=== PATIENT | female | born 1990 | race Caucasian/White ===

== ENCOUNTER → 2017-12-23 | Outpatient (CLI) | payer BC ==
[2017-12-23 08:13] LABS: T4, Free (Free Thyroxine) 1.19 ng/dL (0.78-2.19)
== END | disposition home or self-care (01) ==
LOC: LABWHC1 07:16
PROVIDERS: ATTEND Obstetrics & Gynecology
DX: N97.0 Female infertility associated with anovulation (principal)
CPT/HCPCS: 36415; 84144; 84439; 84443

== ENCOUNTER → 2018-03-23 | Outpatient (CLI) | payer BC ==
--- NOTE | 2018-03-23 14:25 | USB ---
Reason for exam: clinical finding. Indicated problem(s): pain in the left breast. Physical Findings: Nurse Summary: left breast lower quadrant pain on exam, prominent bilateral nodularity, all soft, movable (nurse ts). US Breast LT Left complete breast ultrasound includes all four quadrants, the retroareolar region and axilla. Finding demonstrates a 9 x 5 x 10mm oval, solid, hypoechoic lesion at 1 o'clock and a 15 x 5 x 13mm oval, solid, hypoechoic, vascular lesion at 8 o'clock. 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 ASSESSMENT: Probably benign, BI-RAD 3 RECOMMENDATION: Ultrasound of the left breast in 6 months.
== END | disposition home or self-care (01) ==
LOC: RADUSWWP 13:37
PROVIDERS: ATTEND Obstetrics & Gynecology
DX: N64.4 Mastodynia (principal)

== ENCOUNTER → 2018-05-25 | Outpatient (CLI) | payer BC ==
[2018-05-25 07:16] LABS: Basophils % (A) 1 %; Eosinophils # (A) 0.1 k/uL (0-0.7); Eosinophils % (A) 2 %; HCT 41.5 % (34.0-46.0); HGB 14.2 gm/dL (11.4-16.0); Lymphocytes # (A) 1.8 k/uL (1.0-4.8); Lymphocytes % (A) 30 %; MCH 30.3 pg (25.0-35.0); MCHC 34.3 g/dL (31.0-37.0); MCV 88.5 fL (80.0-100.0); Mean Platelet Volume 6.3; Monocytes # (A) 0.3 k/uL (0-1.0); Monocytes % (A) 5 %; Neutrophils # (A) 3.8 k/uL (1.3-7.7); Neutrophils % (A) 61 %; Platelet Count 257 k/uL (150-450); RBC 4.69 m/uL (3.80-5.40); RDW 12.2 % (11.5-15.5); WBC 6.2 k/uL (3.8-10.6)
== END | disposition home or self-care (01) ==
LOC: LABPAT 06:51
PROVIDERS: ATTEND Obstetrics & Gynecology
DX: Z01.812 Encounter for preprocedural laboratory examination (principal)
CPT/HCPCS: 36415; 85025

== ENCOUNTER 2018-05-26 05:50 | Day surgery (SDC) | payer BC ==
--- NOTE | 2018-05-25 12:53 | P.HPOB ---
History of Present Illness H&P Date: 05/25/18 Chief Complaint: Missed . This patient is a pleasant 27yr female estimated gestational age 8wk who presents for a suction D&C secondary to a missed . She has had serial ultrasounds showing an empty gestational sac and also subchorionic bleed. She has been bleeding almost daily and is now requesting suction D&C for treatment. Review of Systems Constitutional: Denies chills, Denies fever Genitourinary: Reports abnormal vaginal bleeding, Reports Past Medical History Past Medical History: GERD/Reflux Additional Past Medical History / Comment(s): migraines, heart murmer, abdominal pain, History of Any Multi-Drug Resistant Organisms: None Reported Past Surgical History: Breast Surgery Additional Past Surgical History / Comment(s): D&C, lumpectomy-rt breast Past Anesthesia/Blood Transfusion Reactions: No Reported Reaction Past Psychological History: Anxiety Smoking Status: Never smoker Past Alcohol Use History: Occasional Past Drug Use History: None Reported - Past Family History Mother Family Medical History: No Reported History Medications and Allergies Home Medications Medication Instructions Recorded Confirmed Type Penicillin V Potassium [Pen Vee K] 500 mg PO QID #40 tab 10/06/16 Rx Allergies Allergy/AdvReac Type Severity Reaction Status Date / Time latex Allergy Rash/Hives Verified 10/05/16 23:58 pseudoephedrine HCl Allergy Anaphylaxis Verified 10/05/16 23:58 [facility] Exam - OBG Physical Exam Abdomen: bowel sounds normal, no diffuse tenderness, no bruit present, no guarding noted, no hepatomegaly, no splenomegaly, no mass Vulva: both: normal Vagina: normal moisture, no discharge Cervix: no lesion, no discharge Uterus: enlarged (8 weeks size) Results Serial ultrasounds show an empty gestational sac and subchorionic bleed. Assessment and Plan Assessment: This is a pleasant 27 yr female estimated gestational age 8 weeks with missed , requesting suction D&C for treatment. I discussed this surgery and risks: infection, bleeding, possible uterine perforation. All of the patients questions were answered and a written consent obtained. (1) Missed Status: Acute Code(s): O02.1 - MISSED SNOMED Code(s): 34067495
[~2018-05-26 05:50] MED LIST: Pre Op ABX Message 1 EACH MISC MISCELLANE ONE
[2018-05-26] MEDS ORDERED: LACTATED RINGERS 1,000 ML IV SCH (06:33)
[2018-05-26] MEDS ORDERED: LIDOCAINE 1% 20 ML VIAL (10MG/ML) FOR IV START INTRADERMA PRN (06:33)
[2018-05-26] MEDS ORDERED: DEXAMETHASONE SOD PHOSPHATE 10 MG/ML 1 ML VIAL IV ONE (06:46)
[2018-05-26] MEDS ORDERED: ONDANSETRON 4 MG/2 ML VIAL IVP ONE (06:47)
[2018-05-26] MEDS ORDERED: SCOPOLAMINE 1.5MG/72HR PATCH TRANSDERM ONE (06:48)
[2018-05-26] MEDS ORDERED: LIDOCAINE 1% INJ 10MG/ML (20 ML MDV) ONE (06:55)
[2018-05-26] MEDS ORDERED: MIDAZOLAM 2 MG/2 ML VIAL ONE (06:55)
[2018-05-26] MEDS ORDERED: fentaNYL (PF) 50 MCG/ML 2 ML AMP ONE (06:55)
[2018-05-26] MEDS ORDERED: PROPOFOL 10 MG/ML 20 ML VIAL IV ONE (06:55)
[2018-05-26] MEDS ORDERED: KETOROLAC 30 MG/ML 1 ML VIAL ONE (06:55)
--- NOTE | 2018-05-26 07:28 | P.OP ---
Date of Procedure: 05/26/18 Preoperative Diagnosis: Missed , 8 weeks Postoperative Diagnosis: Same Procedure(s) Performed: Suction D&C Anesthesia: other (LMA) Surgeon: Mitch Shearer Estimated Blood Loss (ml): 75 Urine output (ml): 25 Pathology: other (Uterine contents) Condition: stable Disposition: PACU Indications for Procedure: Please see dictated H&P for intimate details of this patient's admission. Brief summary this pleasant 27-year-old female whose estimated gestational age approximately 8 weeks who's had serial ultrasounds showing empty gestational sac. Patient's also had bleeding on and off and at this point is requesting suction D&C for treatment. Patient does understand the surgery and risks including risks of infection, bleeding, possible uterine perforation. All the patient's questions are answered written consent is obtained. Operative Findings: Uterine contents consistent with degenerated products of conception Description of Procedure: This patient is taken to the operating room where she is laid in the supine position. She subsequently undergoes general anesthesia without incident. With an adequate level of anesthesia she has a vaginal perineal prep and drape. Examination under anesthesia shows a retroverted uterus. I placed a weighted speculum posterior vagina and the bladder is drained with a latex free catheter. The Allis clamp was then placed on the anterior lip of the cervix. Cervix is gently dilated to allow a 8 curved suction curette into the uterine cavity. Suction is applied and a generous amount of tissue is removed. Multiple passes are made until no further tissue was noted. A gentle but 4 quadrant curettage is then done and note other tissue was noted. A final pass of the suction curet is done and again no further tissue was noted. Bleeding subsides at this time. Procedure is ended. The Allis clamp and weighted speculum was removed. All counts are correct 3. There are no complications. Patient's blood type is Rh+. Patient is taken to the recovery room in satisfactory condition.
[2018-05-26 07:29] VITALS: RESP 16; TEMP 97
[2018-05-26] MEDS: fentaNYL (PF) 50 MCG/ML 2 ML AMP IV PRN ×2 (07:38→07:55)
[2018-05-26 08:39] VITALS: BP 117/65; PULSE 82
== END 2018-05-26 08:45 | disposition home or self-care (01) ==
LOC: OR 05:50
PROVIDERS: ATTEND Obstetrics & Gynecology
DX: O02.1 Missed abortion (principal); Z3A.08 8 weeks gestation of pregnancy; K21.9 Gastro-esophageal reflux disease without esophagitis; R01.1 Cardiac murmur, unspecified; Z79.899 Other long term (current) drug therapy; F41.9 Anxiety disorder, unspecified; Z88.8 Allergy status to other drugs, medicaments and biological substances; Z91.040 Latex allergy status
CPT/HCPCS: 86900; 86901; 88305; 86850; 59820; J2250; J1100; J2405; J2001; J3010; J1885; J2704

== ENCOUNTER → 2018-06-21 | Outpatient (CLI) | payer BC ==
--- NOTE | 2018-06-21 08:10 | MR ---
PRE AND POSTCONTRAST ENHANCED MRI OF THE BRAIN: CLINICAL HISTORY: Tension headaches CONTRAST: Gadavist 7 mL Comparison: 01/21/2014 Multiplanar and multispin-echo imaging of the brain was performed both before and after the administr ation of contrast. The ventricles, basal cisterns and sulci overlying the cerebral convexities are within normal limits. There is no evidence for midline shift or mass effect. Acute intracranial hemorrhage or extra-axial collection is not evident. There are no abnormal areas of increased or decreased signal intensity within the brain parenchyma. Following contrast administration, there is no evidence for pathologic enhancement or enhancing mass. The paranasal sinuses and mastoid air cells are well-aerated. IMPRESSION: Unremarkable pre and postcontrast enhanced MRI of the brain.
== END | disposition home or self-care (01) ==
LOC: RADMRIMAIN 06:11
PROVIDERS: ATTEND Psychiatry & Neurology Neurology
DX: G44.209 Tension-type headache, unspecified, not intractable (principal)
CPT/HCPCS: 70553; A9581

== ENCOUNTER → 2018-06-28 | Outpatient (CLI) | payer BC ==
[2018-06-28 08:11] LABS: HCT 43.4 % (34.0-46.0); HGB 15.1 gm/dL (11.4-16.0); MCH 30.7 pg (25.0-35.0); MCHC 34.7 g/dL (31.0-37.0); MCV 88.6 fL (80.0-100.0); Mean Platelet Volume 6.6; Platelet Count 279 k/uL (150-450); RBC 4.91 m/uL (3.80-5.40); WBC 6.9 k/uL (3.8-10.6)
== END | disposition home or self-care (01) ==
LOC: LABWHC1 07:34
PROVIDERS: ATTEND Obstetrics & Gynecology
DX: O02.1 Missed abortion (principal); O46.8X9 Other antepartum hemorrhage, unspecified trimester; N93.8 Other specified abnormal uterine and vaginal bleeding; Z3A.00 Weeks of gestation of pregnancy not specified
CPT/HCPCS: 36415; 84702; 85027

== ENCOUNTER → 2018-07-05 | Outpatient (CLI) | payer BC | END | disposition home or self-care (01) | LOC: LABWHC1 07:09 | PROVIDERS: ATTEND Obstetrics & Gynecology | DX: O03.9 Complete or unspecified spontaneous abortion without complication (principal) | CPT/HCPCS: 36415; 84702 ==

== ENCOUNTER 2018-07-12 23:28 | Emergency (ER) | payer BC ==
[2018-07-13 00:06] LABS: Appearance,Urine Clear (Clear); Bilirubin,Urine Negative (Negative); Blood,Urine Negative (Negative); Color,Urine Light Yellow; Glucose,Urine (UA) Negative (Negative); Ketones,Urine Trace (Negative); Leukocyte Esterase,Urine Negative (Negative); Nitrite,Urine Negative (Negative); Protein,Urine Negative (Negative); Specific Gravity,Urine 1.011 (1.001-1.035); Urobilinogen,Urine <2.0 mg/dL (<2.0)
[2018-07-13] MEDS ORDERED: ONDANSETRON 4 MG/2 ML VIAL IVP STA (01:12)
[2018-07-13] MEDS ORDERED: MAG HYDROX/AL HYDROX/SIMETH 30 ML, HYOSCYAMINE ELIXIR 10 ML, CIMETIDINE HCL 300 MG, LID... PO STA ×4 (01:13)
--- NOTE | 2018-07-13 01:17 | ED ---
Abdominal Pain HPI - General Chief Complaint: Abdominal Pain Stated Complaint: Abd and back pain Time Seen by Provider: 07/13/18 00:58 Source: patient Mode of arrival: ambulatory Limitations: no limitations - History of Present Illness Initial Comments: This patient is a 27-year-old woman who presents to be evaluated for epigastric abdominal pain. She states is been going on for a bit over a week. Is currently severe. It has at times been crampy and she states that times throbbing. She sometimes notes that it is worse with movement, otherwise no worsening or relieving factors. The pain is somewhat intermittent. When the pain becomes severe she has nausea associated. She was seen at a clinic in [facility] where she was told she may be developing an ulcer and given prescription for Carafate and told to follow-up. MD Complaint: abdominal pain Onset/Timin -: week(s) Location: epigastric Radiation: none Migration to: no migration Severity: severe Quality: cramping, other (Throbbing) Consistency: intermittent Improves With: movement Worsens With: nothing Associated Symptoms: nausea - Related Data Previous Rx's Medication Instructions Recorded Famotidine [Pepcid] 20 mg PO BID #14 tablet 07/13/18 Allergies Allergy/AdvReac Type Severity Reaction Status Date / Time latex Allergy Rash/Hives Verified 07/12/18 23:40 pseudoephedrine HCl Allergy Anaphylaxis Verified 07/12/18 23:40 [From [facility]] Review of Systems ROS Statement: Those systems with pertinent positive or pertinent negative responses have been documented in the HPI. ROS Other: All systems not noted in ROS Statement are negative. Constitutional: Denies: fever, chills Respiratory: Denies: cough, dyspnea Cardiovascular: Denies: chest pain, palpitations, edema Gastrointestinal: Reports: abdominal pain, nausea. Denies: vomiting, diarrhea, constipation Genitourinary: Denies: dysuria, frequency, hematuria, abnormal menses Musculoskeletal: Denies: back pain Skin: Denies: rash Neurological: Denies: headache, weakness, numbness Past Medical History Past Medical History: GERD/Reflux Additional Past Medical History / Comment(s): migraines, heart murmer, abdominal pain, seeing neurologist for headaches (accipital nerves are inflammed ), History of Any Multi-Drug Resistant Organisms: None Reported Past Surgical History: Breast Surgery Additional Past Surgical History / Comment(s): D&C, lumpectomy-rt breast, Past Anesthesia/Blood Transfusion Reactions: No Reported Reaction, Motion Sickness, Postoperative Nausea & Vomiting (PONV) Past Psychological History: Anxiety Smoking Status: Never smoker Past Alcohol Use History: Occasional Past Drug Use History: None Reported - Past Family History Mother Family Medical History: No Reported History General Exam Limitations: no limitations General appearance: alert, in no apparent distress Head exam: Present: atraumatic, normocephalic Eye exam: Present: normal appearance. Absent: scleral icterus, conjunctival injection ENT exam: Present: normal oropharynx Respiratory exam: Present: normal lung sounds bilaterally. Absent: respiratory distress, wheezes, rales, rhonchi, stridor Cardiovascular Exam: Present: regular rate, normal rhythm, normal heart sounds. Absent: systolic murmur, diastolic murmur, rubs, gallop GI/Abdominal exam: Present: soft, tenderness (There is mild epigastric tenderness without rebound or guarding), normal bowel sounds. Absent: distended , guarding, rebound, rigid, mass, pulsatile mass, hernia Extremities exam: Present: normal inspection, normal capillary refill. Absent: pedal edema, calf tenderness Back exam: Present: normal inspection. Absent: CVA tenderness (R), CVA tenderness (L) Neurological exam: Present: alert Skin exam: Present: warm, dry, intact, normal color. Absent: rash Course Vital Signs 07/12/18 23:35 Temperature 98.0 F Pulse Rate 82 Respiratory 17 Rate Blood Pressure 133/88 O2 Sat by Pulse 98 Oximetry Medical Decision Making - Lab Data Result diagrams: 07/13/18 01:46 07/13/18 01:46 Lab Results 07/12/18 07/12/18 07/13/18 Range/Units 23:40 23:40 01:46 WBC (3.8-10.6) k/uL RBC (3.80-5.40) m/uL Hgb (11.4-16.0) gm/dL Hct (34.0-46.0) % MCV (80.0-100.0) fL MCH (25.0-35.0) pg MCHC (31.0-37.0) g/dL RDW (11.5-15.5) % Plt Count (150-450) k/uL Neutrophils % % Lymphocytes % % Monocytes % % Eosinophils % % Basophils % % Neutrophils # (1.3-7.7) k/uL Lymphocytes # (1.0-4.8) k/uL Monocytes # (0-1.0) k/uL Eosinophils # (0-0.7) k/uL Basophils # (0-0.2) k/uL Sodium 139 (137-145) mmol/L Potassium 3.5 (3.5-5.1) mmol/L Chloride 105 (98-107) mmol/L Carbon Dioxide 26 (22-30) mmol/L Anion Gap 8 mmol/L BUN 13 (7-17) mg/dL Creatinine 0.56 (0.52-1.04) mg/dL Est GFR (CKD-EPI)AfAm >90 (>60 ml/min/1.73 sqM) Est GFR (CKD-EPI)NonAf >90 (>60 ml/min/1.73 sqM) Glucose 84 (74-99) mg/dL Calcium 9.4 (8.4-10.2) mg/dL Total Bilirubin 0.5 (0.2-1.3) mg/dL AST 22 (14-36) U/L ALT 36 (9-52) U/L Alkaline Phosphatase 54 (38-126) U/L Total Protein 7.5 (6.3-8.2) g/dL Albumin 4.5 (3.5-5.0) g/dL Amylase 72 (30-110) U/L Lipase 193 (23-300) U/L Urine Color Light Yellow Urine Appearance Clear (Clear) Urine pH 6.0 (5.0-8.0) Ur Specific Hulett 1.011 (1.001-1.035) Urine Protein Negative (Negative) Urine Glucose (UA) Negative (Negative) Urine Ketones Trace H (Negative) Urine Blood Negative (Negative) Urine Nitrite Negative (Negative) Urine Bilirubin Negative (Negative) Urine Urobilinogen <2.0 (<2.0) mg/dL Ur Leukocyte Esterase Negative (Negative) Urine HCG, Qual Not Detected (Not Detectd) 07/13/18 Range/Units 01:46 WBC 8.6 (3.8-10.6) k/uL RBC 4.84 (3.80-5.40) m/uL Hgb 14.5 (11.4-16.0) gm/dL Hct 42.2 (34.0-46.0) % MCV 87.1 (80.0-100.0) fL MCH 30.0 (25.0-35.0) pg MCHC 34.4 (31.0-37.0) g/dL RDW 11.9 (11.5-15.5) % Plt Count 255 (150-450) k/uL Neutrophils % 53 % Lymphocytes % 37 % Monocytes % 6 % Eosinophils % 1 % Basophils % 1 % Neutrophils # 4.5 (1.3-7.7) k/uL Lymphocytes # 3.2 (1.0-4.8) k/uL Monocytes # 0.5 (0-1.0) k/uL Eosinophils # 0.1 (0-0.7) k/uL Basophils # 0.1 (0-0.2) k/uL Sodium (137-145) mmol/L Potassium (3.5-5.1) mmol/L Chloride (98-107) mmol/L Carbon Dioxide (22-30) mmol/L Anion Gap mmol/L BUN (7-17) mg/dL Creatinine (0.52-1.04) mg/dL Est GFR (CKD-EPI)AfAm (>60 ml/min/1.73 sqM) Est GFR (CKD-EPI)NonAf (>60 ml/min/1.73 sqM) Glucose (74-99) mg/dL Calcium (8.4-10.2) mg/dL Total Bilirubin (0.2-1.3) mg/dL AST (14-36) U/L ALT (9-52) U/L Alkaline Phosphatase (38-126) U/L Total Protein (6.3-8.2) g/dL Albumin (3.5-5.0) g/dL Amylase (30-110) U/L Lipase (23-300) U/L Urine Color Urine Appearance (Clear) Urine pH (5.0-8.0) Ur Specific Hulett (1.001-1.035) Urine Protein (Negative) Urine Glucose (UA) (Negative) Urine Ketones (Negative) Urine Blood (Negative) Urine Nitrite (Negative) Urine Bilirubin (Negative) Urine Urobilinogen (<2.0) mg/dL Ur Leukocyte Esterase (Negative) Urine HCG, Qual (Not Detectd) Disposition Clinical Impression: Abdominal pain Disposition: HOME SELF-CARE Condition: Fair Instructions: Abdominal Pain (ED) Prescriptions: Famotidine [Pepcid] 20 mg PO BID #14 tablet Is patient prescribed a controlled substance at d/c from ED?: No Referrals: Doyle Summers DO [Primary Care Provider] - 1-2 days Andreina Hawthorne MD [STAFF PHYSICIAN] - 1-2 days
--- NOTE | 2018-07-13 01:38 | US ---
EXAMINATION TYPE: US abdomen limited DATE OF EXAM: 07/13/2018 COMPARISON: NONE CLINICAL HISTORY: Pain, RUQ. Pain EXAM MEASUREMENTS: Liver Length: 16.0 cm Gallbladder Wall: 0.2 cm CBD: 0.4 cm Right Kidney: 10.0 x 4.3 x 3.9 cm Pancreas: wnl Liver: wnl Gallbladder: wnl Evidence for sonographic Daigle's sign: No CBD: wnl Right Kidney: wnl Exam appears wnl. IMPRESSION: Normal exam. No gallstones or dilated ducts.
[2018-07-13 02:10] LABS: Basophils # (A) 0.1 k/uL (0-0.2); Basophils % (A) 1 %; Eosinophils # (A) 0.1 k/uL (0-0.7); Eosinophils % (A) 1 %; HCT 42.2 % (34.0-46.0); HGB 14.5 gm/dL (11.4-16.0); Lymphocytes # (A) 3.2 k/uL (1.0-4.8); Lymphocytes % (A) 37 %; MCHC 34.4 g/dL (31.0-37.0); MCV 87.1 fL (80.0-100.0); Mean Platelet Volume 6.6; Monocytes # (A) 0.5 k/uL (0-1.0); Monocytes % (A) 6 %; Neutrophils # (A) 4.5 k/uL (1.3-7.7); Neutrophils % (A) 53 %; Platelet Count 255 k/uL (150-450); RBC 4.84 m/uL (3.80-5.40); RDW 11.9 % (11.5-15.5); WBC 8.6 k/uL (3.8-10.6)
[2018-07-13 02:27] LABS: ALT 36 U/L (9-52); AST 22 U/L (14-36); Albumin 4.5 g/dL (3.5-5.0); Alkaline Phosphatase 54 U/L (38-126); Amylase 72 U/L (30-110); Anion Gap 8 mmol/L; Blood Urea Nitrogen 13 mg/dL (7-17); Calcium 9.4 mg/dL (8.4-10.2); Carbon Dioxide 26 mmol/L (22-30); Chloride 105 mmol/L (98-107); Glucose 84 mg/dL (74-99); Lipase 193 U/L (23-300); Potassium 3.5 mmol/L (3.5-5.1); Sodium 139 mmol/L (137-145); Total Bilirubin 0.5 mg/dL (0.2-1.3); Total Protein 7.5 g/dL (6.3-8.2)
[2018-07-13] MEDS ORDERED: FAMOTIDINE 20 MG/2 ML VIAL IV STA (02:46)
--- NOTE | 2018-07-13 03:11 | XR ---
EXAMINATION TYPE: XR chest 2V DATE OF EXAM: 07/13/2018 COMPARISON: NONE HISTORY: Abdominal pain TECHNIQUE: Frontal and lateral views of the chest are obtained. FINDINGS: Heart and mediastinum are normal. Lungs are clear. Diaphragm is normal. Bony thorax appear s normal. IMPRESSION: Normal chest.
[2018-07-13] MEDS ORDERED: HYDROcodone/APAP 5-325MG 1 EACH TAB PO STA (03:42)
[2018-07-13 04:02] VITALS: BP 121/66; PULSE 73; RESP 18; TEMP 97.8
== END 2018-07-13 04:33 | disposition home or self-care (01) ==
LOC: EC 23:28
DX: R10.13 Epigastric pain (principal); R11.0 Nausea; Z91.040 Latex allergy status; Z88.8 Allergy status to other drugs, medicaments and biological substances
CPT/HCPCS: 36415; 80053; 82150; 83690; 85025; 81003; 81025; 71046; 76705; 99284; 96374; 96375; J2405

== ENCOUNTER → 2018-08-16 | Outpatient (CLI) | payer BC ==
--- NOTE | 2018-08-16 09:25 | NM ---
Nuclear medicine hepatobiliary scan. HISTORY: Pain. DOSAGE: The patient received 8 ounces of ensure plus and 5.1 mCi of Technetium 99m Choletec. FINDINGS: There is heterogeneous hepatic extraction. The gallbladder is seen by 20 minutes. There i s biliary to bowel clearance by 30 minutes. Ejection fraction is 89%. IMPRESSION: 1. No evidence of cholecystitis. 2. Ejection fraction of 89% can occasionally be seen with hyperdynamic gallbladder. Correlate clinica lly. 3. Heterogeneous hepatic extraction which could be technical, correlate with liver function studies.
== END | disposition home or self-care (01) ==
LOC: RADNMMAIN 07:01
PROVIDERS: ATTEND Family Medicine
DX: R10.11 Right upper quadrant pain (principal)
CPT/HCPCS: 78226; A9537

== ENCOUNTER → 2018-08-28 | Outpatient (CLI) | payer BC ==
--- NOTE | 2018-08-28 13:58 | CT ---
EXAMINATION TYPE: CT abdomen pelvis wo con DATE OF EXAM: 08/28/2018 COMPARISON: 07/24/2015 HISTORY: Pain x 4-5 days, worse on left side. CT DLP: 329.4 mGycm Automated exposure control for dose reduction was used. TECHNIQUE: Helical acquisition of images was performed from the lung bases through the pelvis. FINDINGS: LUNG BASES: No significant abnormality is appreciated. LIVER/GB: Unremarkable unenhanced morphology. No cholelithiasis. PANCREAS: No significant abnormality is seen. SPLEEN: No splenomegaly. Spleen measures 10.6 cm in craniocaudal dimension. ADRENALS: No significant abnormality is seen. KIDNEYS: No hydronephrosis or nephrolithiasis. FREE AIR: No free air is visualized ADENOPATHY: None visualized REPRODUCTIVE ORGANS: Follicular and/or cystic changes are seen of the ovaries that could be further a ssessed with pelvic ultrasound. OSSEOUS STRUCTURES: No significant abnormality is seen. BOWEL: No dilated large or small bowel. No pericolonic fat stranding is seen. No diverticula are not ed. No pericolonic abscess or fluid collection. Appendix is contrast-filled, retrocecal and within no rmal limits.. OTHER: Incidental note is made of a 1.3 cm Bartholin's gland cyst without surrounding inflammatory fa t stranding. IMPRESSION: 1. NO EVIDENCE OF DIVERTICULITIS OR ACUTE COLITIS. NO PNEUMOPERITONEUM OR EVIDENCE OF INTRA-ABDOMINAL ABSCESS. 2. FOLLICULAR AND/OR CYSTIC CHANGES OF THE OVARIES. IF THERE IS PERSISTENT ABDOMINAL PAIN OR FURTHER CLINICAL CONCERN PELVIC ULTRASOUND COULD BE PERFORMED. 3. INCIDENTALLY NOTED LEFT BARTHOLIN'S GLAND CYST.
== END | disposition home or self-care (01) ==
LOC: RADCTMAIN 11:46
PROVIDERS: ATTEND Family Medicine
DX: N75.0 Cyst of Bartholin's gland (principal)
CPT/HCPCS: 74176

== ENCOUNTER 2018-10-13 08:02 | Day surgery (SDC) | payer BC ==
[2018-10-12 09:32] VITALS: BMI 22.8
[2018-10-13] MEDS: LACTATED RINGERS 1,000 ML IV SCH ×2 (08:19→08:49)
[2018-10-13 08:21] VITALS: TEMP 98.5
[2018-10-13] MEDS ORDERED: ONDANSETRON 4 MG/2 ML VIAL IVP ONE (08:24)
[2018-10-13] MEDS ORDERED: PROPOFOL 10 MG/ML 20 ML VIAL IV ONE (08:51)
--- NOTE | 2018-10-13 09:04 | P.PCN ---
Date of Procedure: 10/13/18 Procedure(s) Performed: BRIEF HISTORY: Patient is a 27-year-old, pleasant, white female scheduled for an upper endoscopy as a part of evaluation of epigastric pain for the last 3 months duration. Pain is mostly in the epigastric area and associated with some heartburn. She tried Carafate, Zantac and Prilosec with no help. She is hence scheduled for an upper endoscopy to evaluate further. No prior history of peptic ulcer disease. PROCEDURE PERFORMED: Esophagogastroduodenoscopy with biopsy. PREOPERATIVE DIAGNOSIS: Heartburn and persistent epigastric pain of 3 months duration. IV sedation per anesthesia. PROCEDURE: After informed consent was obtained, the patient was brought into the endoscopy unit. IV sedation was administered by Anesthesia under continuous monitoring. Initially the Olympus GIF-140 video endoscope was inserted into the mouth. Esophagus intubated without any difficulty. It was gradually advanced into the stomach and duodenum and carefully examined. The bulb and the second part of the duodenum appeared normal. Biopsies were done from the duodenum to rule out celiac disease. The scope at this time was withdrawn to the stomach, adequately insufflated with air, and upon careful examination, mucosa of the antrum, had mild gastritis and scattered erosions and biopsies for H. pylori were done. The body, cardia and the fundus appeared normal. The scope was then withdrawn into the esophagus. The GE junction was located at 39 cm from the incisors. There were 2 superficial erosions at the GE junction consistent with LA grade B reflux esophagitis. The rest of the esophagus appeared normal and the patient tolerated the procedure well. IMPRESSION: 1. Antral erosive gastritis. 2. Two superficial erosions at the GE junction consistent with LA grade B reflux esophagitis. RECOMMENDATIONS: The findings of this examination were discussed with the patient as well as her family. She was advised to follow with the biopsy results. In the meantime she was advised to avoid NSAIDs and she will be given a trial of Pepcid 20 mg twice daily. If she still has persistent symptoms she was advised to follow up in office in 3-4 weeks.
[2018-10-13 09:24] VITALS: BP 103/71; PULSE 64; RESP 16
== END 2018-10-13 09:46 | disposition home or self-care (01) ==
LOC: ORWHC2ENDO 08:02
PROVIDERS: ATTEND Internal Medicine Gastroenterology
DX: K29.50 Unspecified chronic gastritis without bleeding (principal); K22.10 Ulcer of esophagus without bleeding; J45.909 Unspecified asthma, uncomplicated; K21.9 Gastro-esophageal reflux disease without esophagitis; Z79.1 Long term (current) use of non-steroidal anti-inflammatories (NSAID); Z79.82 Long term (current) use of aspirin; Z79.899 Other long term (current) drug therapy; Z88.8 Allergy status to other drugs, medicaments and biological substances; Z91.040 Latex allergy status
CPT/HCPCS: 81025; 88305; 43239; J2405; J2704

== ENCOUNTER → 2018-11-01 | Outpatient (CLI) | payer BC ==
--- NOTE | 2018-11-02 11:55 | USB ---
Reason for exam: follow-up at short interval from prior study. Physical Findings: Nurse Summary: prominent bilateral nodularity (nurse ts). US Breast LT Left complete breast ultrasound includes all four quadrants, the retroareolar region and axilla. Finding demonstrates a 1.0 x 0.5 x 1.0cm oval, solid, hypoechoic stable lesion at 1 o'clock and a 1.5 x 1.7 x 0.5cm oval, solid, hypoechoic, stable lesion at 8 o'clock. Probable fibroadenomas. These results were verbally communicated with the patient and result sheet given to the patient on 11/01/18. ASSESSMENT: Benign, BI-RAD 2 RECOMMENDATION: Clinical management of the left breast. Manage patient on a clinical basis.
== END ==
LOC: RADUSWWP 07:08
PROVIDERS: ATTEND Obstetrics & Gynecology
DX: R92.8 Other abnormal and inconclusive findings on diagnostic imaging of breast (principal)

== ENCOUNTER 2018-12-03 19:25 | Emergency (ER) | payer BC, OTHER ==
--- NOTE | 2018-12-03 20:16 | ED ---
General Adult HPI - General Source: patient Mode of arrival: ambulatory Limitations: no limitations <Young Lopez - Last Filed: 12/03/18 20:15> <Paz Gibbs P - Last Filed: 12/03/18 22:49> - General Chief complaint: Chest Pain Stated complaint: SOB,Chest pain Time Seen by Provider: 12/03/18 20:15 - Related Data Home Medications Medication Instructions Recorded Confirmed Cetirizine HCl [Zyrtec] 10 mg PO DAILY PRN 09/21/18 12/03/18 Aspirin 81 mg PO DAILY PRN 10/12/18 12/03/18 Ranitidine HCl [Zantac] 150 mg PO BID PRN 12/03/18 12/03/18 Allergies Allergy/AdvReac Type Severity Reaction Status Date / Time latex Allergy Rash/Hives Verified 12/03/18 20:18 pseudoephedrine HCl Allergy Anaphylaxis Verified 12/03/18 20:18 [From [facility]] Review of Systems ROS Other: All systems not noted in ROS Statement are negative. <Young Lopez - Last Filed: 12/03/18 20:15> ROS Other: All systems not noted in ROS Statement are negative. <Paz Gibbs P - Last Filed: 12/03/18 22:49> ROS Statement: Those systems with pertinent positive or pertinent negative responses have been documented in the HPI. Past Medical History Past Medical History: Asthma, GERD/Reflux Additional Past Medical History / Comment(s): migraines, heart murmur, abdominal pain, seeing neurologist for headaches (occipital nerves are inflammed ), sport induced asthma as teenager, recent palpitations & chest pain-upcoming appt. w/card. History of Any Multi-Drug Resistant Organisms: None Reported Past Surgical History: Breast Surgery Additional Past Surgical History / Comment(s): D&C x2, lumpectomy-rt breast, Past Anesthesia/Blood Transfusion Reactions: Motion Sickness, Postoperative Nausea & Vomiting (PONV) Past Psychological History: Anxiety Smoking Status: Never smoker Past Alcohol Use History: None Reported Past Drug Use History: None Reported - Past Family History Mother Family Medical History: No Reported History <Young Lopez - Last Filed: 12/03/18 20:15> General Exam Limitations: no limitations <Young Lopez - Last Filed: 12/03/18 20:15> Vital Signs 12/03/18 12/03/18 12/03/18 19:35 19:53 20:00 Temperature 98.3 F Pulse Rate 85 70 Respiratory 18 17 17 Rate Blood Pressure 145/105 O2 Sat by Pulse 100 Oximetry 12/03/18 12/03/18 12/03/18 20:10 20:20 20:33 Temperature Pulse Rate 64 66 Respiratory 10 L 17 23 Rate Blood Pressure O2 Sat by Pulse 100 100 Oximetry 12/03/18 12/03/18 12/03/18 20:40 20:50 21:00 Temperature Pulse Rate 72 68 69 Respiratory 17 15 17 Rate Blood Pressure 128/82 128/82 128/82 O2 Sat by Pulse 100 98 100 Oximetry 12/03/18 12/03/18 12/03/18 21:10 21:20 21:30 Temperature Pulse Rate 70 70 Respiratory 10 L 11 L Rate Blood Pressure 116/78 116/78 116/78 O2 Sat by Pulse 100 100 Oximetry 12/03/18 21:40 Temperature Pulse Rate 75 Respiratory 15 Rate Blood Pressure 116/78 O2 Sat by Pulse 100 Oximetry Medical Decision Making <Young Lopez - Last Filed: 12/03/18 20:15> - Lab Data Result diagrams: 12/03/18 19:59 12/03/18 19:59 <Paz Gibbs - Last Filed: 12/03/18 22:49> - Medical Decision Making Dictation was produced using [employer] dictation software. please excuse any grammatical, word or spelling errors. Chief Complaint: 27-year-old female with past medical history of asthma and gastritis presents with 3 days of neck pain shoulder pain chest pain and dyspnea. History of Present Illness: Is a 27-year-old female she's been having symptoms of nausea. No vomiting. Shows complains of neck pain chest pain shoulder pain and back pain. She reports that her symptoms have been ongoing for 3-4 days. Denies any constitutional symptoms. No runny nose or sore throat. Patient denies any overt sick exposure. Patient states her symptoms are worse with movement. She states that she has had symptoms like this before however not this severe. Patient is sexually active does not know she is possibly . The ROS documented in this emergency department record has been reviewed and confirmed by me. Those systems with pertinent positive or negative responses have been documented in the HPI. All other systems are other negative and/or noncontributory. PHYSICAL EXAM: General Impression: Alert and oriented x3, not in acute distress HEENT: Normocephalic atraumatic, extra-ocular movements intact, pupils equal and reactive to light bilaterally, mucous membranes moist. Cardiovascular: Heart regular rate and rhythm, S1&S2 audible, no murmurs, rubs or gallops Chest: Lungs clear to auscultation bilaterally, no rhonchi, no wheeze, no rales Abdomen: Bowel sounds present, abdomen soft, non-tender, non-distended, no organomegaly Musculoskeletal: Pulses present and equal in all extremities, no peripheral edema Motor: Power 5/5 bilaterally, no focal deficits noted Neurological: CN II-XII grossly intact, no focal motor or sensory deficits noted Skin: Intact with no visualized rashes Psych: Normal affect and mood ED course: 27-year-old female presents with multiple complaints. Vital signs upon arrival are within acceptable limits. EKG interpretation: Ventricular rate 75, normal sinus rhythm, OH interval 136, QRS 94, QTc 439. No OH prolongation, no QTC prolongation, no ST or T-wave changes noted. . Overall, this EKG is unremarkable (Young Lopez) Patient care was signed out to me at shift change. This is young female with 3 days of neck shoulder and chest pain with mild dyspnea. No tachycardia or hypoxia. Initial workup was ordered by the daytime physician, at the time of sign out EKG and chest x-ray had been evaluated however labs were pending. Labs resulted with no abnormalities. Patient resting comfortably. Patient discharged home in stable condition. (Paz Gibbs) - Lab Data Lab Results 12/03/18 12/03/18 12/03/18 Range/Units 19:59 19:59 19:59 WBC 6.7 (3.8-10.6) k/uL RBC 4.76 (3.80-5.40) m/uL Hgb 14.9 (11.4-16.0) gm/dL Hct 42.7 (34.0-46.0) % MCV 89.7 (80.0-100.0) fL MCH 31.4 (25.0-35.0) pg MCHC 35.0 (31.0-37.0) g/dL RDW 11.9 (11.5-15.5) % Plt Count 282 (150-450) k/uL Neutrophils % 54 % Lymphocytes % 35 % Monocytes % 6 % Eosinophils % 1 % Basophils % 1 % Neutrophils # 3.6 (1.3-7.7) k/uL Lymphocytes # 2.3 (1.0-4.8) k/uL Monocytes # 0.4 (0-1.0) k/uL Eosinophils # 0.1 (0-0.7) k/uL Basophils # 0.1 (0-0.2) k/uL PT (9.0-12.0) sec INR (<1.2) APTT (22.0-30.0) sec Sodium 141 (137-145) mmol/L Potassium 3.9 (3.5-5.1) mmol/L Chloride 107 (98-107) mmol/L Carbon Dioxide 24 (22-30) mmol/L Anion Gap 10 mmol/L BUN 8 (7-17) mg/dL Creatinine 0.70 (0.52-1.04) mg/dL Est GFR (CKD-EPI)AfAm >90 (>60 ml/min/1.73 sqM) Est GFR (CKD-EPI)NonAf >90 (>60 ml/min/1.73 sqM) Glucose 99 (74-99) mg/dL Calcium 10.0 (8.4-10.2) mg/dL Magnesium 2.1 (1.6-2.3) mg/dL Total Bilirubin 0.4 (0.2-1.3) mg/dL AST 22 (14-36) U/L ALT 28 (9-52) U/L Alkaline Phosphatase 46 (38-126) U/L Total Creatine Kinase 63 (30-135) U/L CK-MB (CK-2) 0.5 (0.0-2.4) ng/mL CK-MB (CK-2) Rel Index 0.8 Troponin I <0.012 (0.000-0.034) ng/mL NT-Pro-B Natriuret Pep pg/mL Total Protein 7.6 (6.3-8.2) g/dL Albumin 4.7 (3.5-5.0) g/dL Urine Color Urine Appearance (Clear) Urine pH (5.0-8.0) Ur Specific [place] (1.001-1.035) Urine Protein (Negative) Urine Glucose (UA) (Negative) Urine Ketones (Negative) Urine Blood (Negative) Urine Nitrite (Negative) Urine Bilirubin (Negative) Urine Urobilinogen (<2.0) mg/dL Ur Leukocyte Esterase (Negative) Urine HCG, Qual (Not Detectd) Influenza Type A RNA (Not Detectd) Influenza Type B (PCR) (Not Detectd) 12/03/18 12/03/18 12/03/18 Range/Units 19:59 19:59 20:30 WBC (3.8-10.6) k/uL RBC (3.80-5.40) m/uL Hgb (11.4-16.0) gm/dL Hct (34.0-46.0) % MCV (80.0-100.0) fL MCH (25.0-35.0) pg MCHC (31.0-37.0) g/dL RDW (11.5-15.5) % Plt Count (150-450) k/uL Neutrophils % % Lymphocytes % % Monocytes % % Eosinophils % % Basophils % % Neutrophils # (1.3-7.7) k/uL Lymphocytes # (1.0-4.8) k/uL Monocytes # (0-1.0) k/uL Eosinophils # (0-0.7) k/uL Basophils # (0-0.2) k/uL PT 10.8 (9.0-12.0) sec INR 1.0 (<1.2) APTT 28.0 (22.0-30.0) sec Sodium (137-145) mmol/L Potassium (3.5-5.1) mmol/L Chloride (98-107) mmol/L Carbon Dioxide (22-30) mmol/L Anion Gap mmol/L BUN (7-17) mg/dL Creatinine (0.52-1.04) mg/dL Est GFR (CKD-EPI)AfAm (>60 ml/min/1.73 sqM) Est GFR (CKD-EPI)NonAf (>60 ml/min/1.73 sqM) Glucose (74-99) mg/dL Calcium (8.4-10.2) mg/dL Magnesium (1.6-2.3) mg/dL Total Bilirubin (0.2-1.3) mg/dL AST (14-36) U/L ALT (9-52) U/L Alkaline Phosphatase (38-126) U/L Total Creatine Kinase (30-135) U/L CK-MB (CK-2) (0.0-2.4) ng/mL CK-MB (CK-2) Rel Index Troponin I (0.000-0.034) ng/mL NT-Pro-B Natriuret Pep 40 pg/mL Total Protein (6.3-8.2) g/dL Albumin (3.5-5.0) g/dL Urine Color Urine Appearance (Clear) Urine pH (5.0-8.0) Ur Specific [place] (1.001-1.035) Urine Protein (Negative) Urine Glucose (UA) (Negative) Urine Ketones (Negative) Urine Blood (Negative) Urine Nitrite (Negative) Urine Bilirubin (Negative) Urine Urobilinogen (<2.0) mg/dL Ur Leukocyte Esterase (Negative) Urine HCG, Qual (Not Detectd) Influenza Type A RNA Not Detected (Not Detectd) Influenza Type B (PCR) Not Detected (Not Detectd) 12/03/18 12/03/18 Range/Units 20:30 20:30 WBC (3.8-10.6) k/uL RBC (3.80-5.40) m/uL Hgb (11.4-16.0) gm/dL Hct (34.0-46.0) % MCV (80.0-100.0) fL MCH (25.0-35.0) pg MCHC (31.0-37.0) g/dL RDW (11.5-15.5) % Plt Count (150-450) k/uL Neutrophils % % Lymphocytes % % Monocytes % % Eosinophils % % Basophils % % Neutrophils # (1.3-7.7) k/uL Lymphocytes # (1.0-4.8) k/uL Monocytes # (0-1.0) k/uL Eosinophils # (0-0.7) k/uL Basophils # (0-0.2) k/uL PT (9.0-12.0) sec INR (<1.2) APTT (22.0-30.0) sec Sodium (137-145) mmol/L Potassium (3.5-5.1) mmol/L Chloride (98-107) mmol/L Carbon Dioxide (22-30) mmol/L Anion Gap mmol/L BUN (7-17) mg/dL Creatinine (0.52-1.04) mg/dL Est GFR (CKD-EPI)AfAm (>60 ml/min/1.73 sqM) Est GFR (CKD-EPI)NonAf (>60 ml/min/1.73 sqM) Glucose (74-99) mg/dL Calcium (8.4-10.2) mg/dL Magnesium (1.6-2.3) mg/dL Total Bilirubin (0.2-1.3) mg/dL AST (14-36) U/L ALT (9-52) U/L Alkaline Phosphatase (38-126) U/L Total Creatine Kinase (30-135) U/L CK-MB (CK-2) (0.0-2.4) ng/mL CK-MB (CK-2) Rel Index Troponin I (0.000-0.034) ng/mL NT-Pro-B Natriuret Pep pg/mL Total Protein (6.3-8.2) g/dL Albumin (3.5-5.0) g/dL Urine Color Colorless Urine Appearance Clear (Clear) Urine pH 7.5 (5.0-8.0) Ur Specific [place] 1.002 (1.001-1.035) Urine Protein Negative (Negative) Urine Glucose (UA) Negative (Negative) Urine Ketones Negative (Negative) Urine Blood Negative (Negative) Urine Nitrite Negative (Negative) Urine Bilirubin Negative (Negative) Urine Urobilinogen <2.0 (<2.0) mg/dL Ur Leukocyte Esterase Negative (Negative) Urine HCG, Qual Not Detected (Not Detectd) Influenza Type A RNA (Not Detectd) Influenza Type B (PCR) (Not Detectd) Disposition <Young Lopez - Last Filed: 12/03/18 20:15> Is patient prescribed a controlled substance at d/c from ED?: No <Paz Gibbs P - Last Filed: 12/03/18 22:49> Clinical Impression: Atypical chest pain Disposition: HOME SELF-CARE Condition: Stable Instructions (If sedation given, give patient instructions): Chest Pain (ED) Referrals: Sae Morrissey MD [Primary Care Provider] - 1-2 days
[2018-12-03 20:20] LABS: Basophils # (A) 0.1 k/uL (0-0.2); Basophils % (A) 1 %; Eosinophils # (A) 0.1 k/uL (0-0.7); Eosinophils % (A) 1 %; HCT 42.7 % (34.0-46.0); HGB 14.9 gm/dL (11.4-16.0); Lymphocytes # (A) 2.3 k/uL (1.0-4.8); Lymphocytes % (A) 35 %; MCH 31.4 pg (25.0-35.0); MCV 89.7 fL (80.0-100.0); Mean Platelet Volume 6.6; Monocytes # (A) 0.4 k/uL (0-1.0); Monocytes % (A) 6 %; Neutrophils # (A) 3.6 k/uL (1.3-7.7); Neutrophils % (A) 54 %; Platelet Count 282 k/uL (150-450); RBC 4.76 m/uL (3.80-5.40); RDW 11.9 % (11.5-15.5); WBC 6.7 k/uL (3.8-10.6)
[2018-12-03 20:30] LABS: ALT 28 U/L (9-52); AST 22 U/L (14-36); Albumin 4.7 g/dL (3.5-5.0); Alkaline Phosphatase 46 U/L (38-126); Anion Gap 10 mmol/L; Blood Urea Nitrogen 8 mg/dL (7-17); Carbon Dioxide 24 mmol/L (22-30); Chloride 107 mmol/L (98-107); Glucose 99 mg/dL (74-99); Magnesium 2.1 mg/dL (1.6-2.3); Potassium 3.9 mmol/L (3.5-5.1); Sodium 141 mmol/L (137-145); Total Bilirubin 0.4 mg/dL (0.2-1.3); Total Protein 7.6 g/dL (6.3-8.2)
[2018-12-03 20:34] LABS: Creatine Kinase 63 U/L (30-135)
[2018-12-03 20:35] LABS: Prothrombin Time 10.8 sec (9.0-12.0)
[2018-12-03 20:47] LABS: Creatine Kinase MB 0.5 ng/mL (0.0-2.4); Troponin I <0.012 ng/mL (0.000-0.034)
[2018-12-03 21:01] LABS: Appearance,Urine Clear (Clear); Bilirubin,Urine Negative (Negative); Blood,Urine Negative (Negative); Color,Urine Colorless; Glucose,Urine (UA) Negative (Negative); Ketones,Urine Negative (Negative); Leukocyte Esterase,Urine Negative (Negative); Nitrite,Urine Negative (Negative); PH, Urine 7.5 (5.0-8.0); Protein,Urine Negative (Negative); Specific Gravity,Urine 1.002 (1.001-1.035); Urobilinogen,Urine <2.0 mg/dL (<2.0)
--- NOTE | 2018-12-03 21:13 | XR ---
EXAMINATION TYPE: XR chest 2V DATE OF EXAM: 12/03/2018 COMPARISON: Prior chest x-ray 07/13/2018 HISTORY: Chest pain TECHNIQUE: Frontal and lateral views of the chest are obtained. FINDINGS: There is no focal air space opacity, pleural effusion, or pneumothorax seen. The cardiac silhouette size is within normal limits. The osseous structures are intact. There are cardiac leads . Pectus deformity is noted. IMPRESSION: No acute cardiopulmonary process.
[2018-12-03 21:48] VITALS: PULSE 75
[2018-12-03 23:38] VITALS: BP 118/75; RESP 16; TEMP 97.9
== END 2018-12-03 23:38 | disposition home or self-care (01) ==
LOC: EC 19:25
DX: R07.89 Other chest pain (principal); M54.2 Cervicalgia; M25.519 Pain in unspecified shoulder; M54.9 Dorsalgia, unspecified; R11.0 Nausea; Z88.8 Allergy status to other drugs, medicaments and biological substances; Z91.040 Latex allergy status; Z86.69 Personal history of other diseases of the nervous system and sense organs
CPT/HCPCS: 36415; 71046; 80053; 81003; 81025; 82550; 82553; 83735; 83880; 84484; 85025; 85610; 85730; 87502; 93005; 99285

== ENCOUNTER 2019-02-21 19:26 | Emergency (ER) | payer OTHER ==
[2019-02-21 19:31] VITALS: BP 133/91; RESP 20; TEMP 98.5
[2019-02-21] MEDS ORDERED: METOCLOPRAMIDE 5 MG/ML 2 ML VIAL IVP STA (19:32)
[2019-02-21] MEDS ORDERED: SODIUM CHLORIDE 0.9% 2,000 ML IV STA (19:32)
--- NOTE | 2019-02-21 19:56 | ED ---
Nausea/Vomiting/Diarrhea HPI - General Chief complaint: Nausea/Vomiting/Diarrhea Stated complaint: Dehyrdation, 12 wks preg Time Seen by Provider: 02/21/19 19:32 Source: patient, RN notes reviewed Mode of arrival: ambulatory Limitations: no limitations - History of Present Illness Initial comments: This is a 28-year-old female presents emergency Department with chief complaint of nausea vomiting in . Patient is A1 currently 12 weeks pr e[address]ant seen Dr. Shearer. Patient states she's had persistent nausea vomiting for last 4 weeks. Patient states the point where she is cramping all over. She has no abdominal complaints denies any vaginal bleeding or vaginal discharge. Patient has appointment tomorrow with Dr. Shearer. Patient is currently taking Unisom, B6, Zofran. She states it's not helping at this point. Denies any no fever no URI symptoms no sick contacts. - Related Data Home Medications Medication Instructions Recorded Confirmed Doxylamine Succinate [Unisom] 25 mg PO HS 02/21/19 02/21/19 Ondansetron [Zofran] 4 mg PO Q6H PRN 02/21/19 02/21/19 Pyridoxine HCl (Vitamin B6) 100 mg PO DAILY 02/21/19 02/21/19 [Vitamin B-6] Allergies Allergy/AdvReac Type Severity Reaction Status Date / Time latex Allergy Rash/Hives Verified 02/21/19 19:45 pseudoephedrine HCl Allergy Anaphylaxis Verified 02/21/19 19:45 [From [facility]] Review of Systems ROS Statement: Those systems with pertinent positive or pertinent negative responses have been documented in the HPI. ROS Other: All systems not noted in ROS Statement are negative. Past Medical History Past Medical History: Asthma, GERD/Reflux Additional Past Medical History / Comment(s): migraines, heart murmur, abdominal pain, seeing neurologist for headaches (occipital nerves are inflammed), sport induced asthma as teenager, recent palpitations & chest pain-upcoming appt. w/card. History of Any Multi-Drug Resistant Organisms: None Reported Past Surgical History: Breast Surgery Additional Past Surgical History / Comment(s): D&C x2, lumpectomy-rt breast, Past Anesthesia/Blood Transfusion Reactions: Motion Sickness, Postoperative Nausea & Vomiting (PONV) Past Psychological History: Anxiety Smoking Status: Never smoker Past Alcohol Use History: None Reported Past Drug Use History: None Reported - Past Family History Mother Family Medical History: No Reported History General Exam Limitations: no limitations General appearance: alert, in no apparent distress Head exam: Present: atraumatic, normocephalic, normal inspection Eye exam: Present: normal appearance, PERRL, EOMI. Absent: scleral icterus, conjunctival injection, periorbital swelling ENT exam: Present: normal exam, normal oropharynx, mucous membranes moist, TM's normal bilaterally Neck exam: Present: normal inspection, full ROM. Absent: tenderness, meningismu s, lymphadenopathy Respiratory exam: Present: normal lung sounds bilaterally. Absent: respiratory distress, wheezes, rales, rhonchi, stridor Cardiovascular Exam: Present: normal rhythm, tachycardia, normal heart sounds. Absent: systolic murmur, diastolic murmur, rubs, gallop, clicks GI/Abdominal exam: Present: soft, normal bowel sounds. Absent: distended, tenderness, guarding, rebound, rigid Neurological exam: Present: alert Skin exam: Present: warm, dry, intact, normal color. Absent: rash Course Vital Signs 02/21/19 02/21/19 19:27 20:59 Temperature 98.5 F Pulse Rate 110 H 99 Respiratory 20 Rate Blood Pressure 133/91 O2 Sat by Pulse 99 97 Oximetry Medical Decision Making - Medical Decision Making 28-year-old female presented for nausea vomiting . Patient has trace ketones and urinalysis, hypokalemia. Patient was given 20 mEq orally. Patient states she is improved after IV fluids and antiemetics. Patient will follow-up with her [employer] tomorrow. Return parameters were discussed. - Lab Data Result diagrams: 02/21/19 19:56 02/21/19 19:56 Lab Results 02/21/19 02/21/19 02/21/19 Range/Units 19:56 19:56 19:56 WBC 8.7 (3.8-10.6) k/uL RBC 4.30 (3.80-5.40) m/uL Hgb 13.5 (11.4-16.0) gm/dL Hct 37.6 (34.0-46.0) % MCV 87.5 (80.0-100.0) fL MCH 31.5 (25.0-35.0) pg MCHC 36.0 (31.0-37.0) g/dL RDW 12.0 (11.5-15.5) % Plt Count 264 (150-450) k/uL Neutrophils % 70 % Lymphocytes % 22 % Monocytes % 5 % Eosinophils % 1 % Basophils % 0 % Neutrophils # 6.1 (1.3-7.7) k/uL Lymphocytes # 1.9 (1.0-4.8) k/uL Monocytes # 0.4 (0-1.0) k/uL Eosinophils # 0.1 (0-0.7) k/uL Basophils # 0.0 (0-0.2) k/uL Sodium 137 (137-145) mmol/L Potassium 3.3 L (3.5-5.1) mmol/L Chloride 106 (98-107) mmol/L Carbon Dioxide 22 (22-30) mmol/L Anion Gap 9 mmol/L BUN 11 (7-17) mg/dL Creatinine 0.43 L (0.52-1.04) mg/dL Est GFR (CKD-EPI)AfAm >90 (>60 ml/min/1.73 sqM) Est GFR (CKD-EPI)NonAf >90 (>60 ml/min/1.73 sqM) Glucose 82 (74-99) mg/dL Calcium 9.3 (8.4-10.2) mg/dL Total Bilirubin 0.4 (0.2-1.3) mg/dL AST 17 (14-36) U/L ALT 21 (9-52) U/L Alkaline Phosphatase 49 (38-126) U/L Total Protein 6.9 (6.3-8.2) g/dL Albumin 4.1 (3.5-5.0) g/dL Lipase 127 (23-300) U/L Urine Color Yellow Urine Appearance Clear (Clear) Urine pH 5.5 (5.0-8.0) Ur Specific [place] 1.027 (1.001-1.035) Urine Protein Trace H (Negative) Urine Glucose (UA) Negative (Negative) Urine Ketones Trace H (Negative) Urine Blood Negative (Negative) Urine Nitrite Negative (Negative) Urine Bilirubin Negative (Negative) Urine Urobilinogen 2.0 (<2.0) mg/dL Ur Leukocyte Esterase Trace H (Negative) Urine RBC 2 (0-5) /hpf Urine WBC 3 (0-5) /hpf Ur Squamous Epith Cells 1 (0-4) /hpf Urine Bacteria Occasional H (None) /hpf Urine Mucus Rare H (None) /hpf Disposition Clinical Impression: Hyperemesis gravidarum, Hypokalemia Disposition: HOME SELF-CARE Condition: Stable Instructions (If sedation given, give patient instructions): Hyperemesis Gravidarum (ED) Additional Instructions: Please return to the Emergency Department if symptoms worsen or any other concerns. Is patient prescribed a controlled substance at d/c from ED?: No Referrals: Sae Morrissey MD [Primary Care Provider] - 1-2 days Mitch Shearer MD [STAFF PHYSICIAN] - 1-2 days Time of Disposition: 21:19
[2019-02-21 20:06] LABS: Basophils % (A) 0 %; Eosinophils # (A) 0.1 k/uL (0-0.7); Eosinophils % (A) 1 %; HCT 37.6 % (34.0-46.0); HGB 13.5 gm/dL (11.4-16.0); Lymphocytes # (A) 1.9 k/uL (1.0-4.8); Lymphocytes % (A) 22 %; MCH 31.5 pg (25.0-35.0); MCV 87.5 fL (80.0-100.0); Mean Platelet Volume 6.4; Monocytes # (A) 0.4 k/uL (0-1.0); Monocytes % (A) 5 %; Neutrophils # (A) 6.1 k/uL (1.3-7.7); Neutrophils % (A) 70 %; Platelet Count 264 k/uL (150-450); WBC 8.7 k/uL (3.8-10.6)
[2019-02-21 20:14] LABS: Appearance,Urine Clear (Clear); Bacteria,Urine Occasional /hpf; Bilirubin,Urine Negative (Negative); Blood,Urine Negative (Negative); Color,Urine Yellow; Glucose,Urine (UA) Negative (Negative); Ketones,Urine Trace (Negative); Leukocyte Esterase,Urine Trace (Negative); Mucus,Urine Rare /hpf; Nitrite,Urine Negative (Negative); PH, Urine 5.5 (5.0-8.0); Protein,Urine Trace (Negative); RBC,Urine 2 /hpf (0-5); Specific Gravity,Urine 1.027 (1.001-1.035); Squamous Epithelial Cell,Urine 1 /hpf (0-4); WBC,Urine 3 /hpf (0-5)
[2019-02-21 20:19] LABS: ALT 21 U/L (9-52); AST 17 U/L (14-36); Albumin 4.1 g/dL (3.5-5.0); Alkaline Phosphatase 49 U/L (38-126); Anion Gap 9 mmol/L; Blood Urea Nitrogen 11 mg/dL (7-17); Calcium 9.3 mg/dL (8.4-10.2); Carbon Dioxide 22 mmol/L (22-30); Chloride 106 mmol/L (98-107); Glucose 82 mg/dL (74-99); Lipase 127 U/L (23-300); Potassium 3.3 mmol/L (3.5-5.1); Sodium 137 mmol/L (137-145); Total Bilirubin 0.4 mg/dL (0.2-1.3); Total Protein 6.9 g/dL (6.3-8.2)
[2019-02-21 21:00] VITALS: PULSE 99
[2019-02-21] MEDS ORDERED: POTASSIUM CHLORIDE ER 20 MEQ TAB.ER PO STA (21:18)
== END 2019-02-21 21:28 | disposition home or self-care (01) ==
LOC: EC 19:26
DX: O21.1 Hyperemesis gravidarum with metabolic disturbance (principal); O99.281 Endocrine, nutritional and metabolic diseases complicating pregnancy, first trimester; E87.6 Hypokalemia; Z3A.12 12 weeks gestation of pregnancy; Z79.899 Other long term (current) drug therapy; Z88.8 Allergy status to other drugs, medicaments and biological substances; Z91.040 Latex allergy status
CPT/HCPCS: 36415; 80053; 83690; 85025; 81001; 99284; 96374; 96361; J2765

== ENCOUNTER 2019-05-04 19:00 | Outpatient (CLI) | payer OTHER ==
[2019-05-04 19:40] LABS: Appearance,Urine Clear (Clear); Bilirubin,Urine Negative (Negative); Blood,Urine Negative (Negative); Color,Urine Light Yellow; Glucose,Urine (UA) Negative (Negative); Ketones,Urine Negative (Negative); Leukocyte Esterase,Urine Negative (Negative); Nitrite,Urine Negative (Negative); PH, Urine 6.5 (5.0-8.0); Protein,Urine Negative (Negative); Specific Gravity,Urine 1.008 (1.001-1.035); Urobilinogen,Urine <2.0 mg/dL (<2.0)
[2019-05-04 20:53] VITALS: BP 119/67; PULSE 81; RESP 16; TEMP 98.5
--- NOTE | 2019-05-05 14:04 | P.MSEPDOC ---
Presenting Problems - Arrival Data Date of Arrival on Unit: 05/04/19 Time of Arrival on Unit: 19:00 Mode of Transport: Ambulatory - Complaint OB-Reason for Admission/Chief Complaint: Pain Comment: cramping, pressure. rates pain a 1 Medical History - Information : 3 Para: 1 Term: 1 : 0 Abortions: Spontaneous or Elective: 1 Number of Living Children: 1 - Gestational Age Gestational Age by VARGAS (wks/days): 22 Weeks and 5 Days Review of Systems - Review of Systems Constitutional: No problems Breast: No problems ENT: No problems Cardiovascular: No problems Respiratory: No problems Gastrointestinal: No problems Genitourinary: No problems Musculoskeletal: No problems Neurological: No problems Skin: No problems Vital Signs - Temperature Temperature: 98.5 F Temperature Source: Oral - Pulse Right Sitting Brachial Pulse Rate: 81 Pulse Assessment Method: Automatic Cuff - Respirations Respiratory Rate: 16 Oxygen Delivery Method: Room Air - Blood Pressure Right Arm Sitting Blood Pressure: 119/67 Blood Pressure Mean: 84 Blood Pressure Source: Automatic Cuff Medical Screen Scoring (Pre) - Cervical Exam Dilation: 0 cm = 0 Membranes: Intact - Uterine Contractions Frequency: N/A Duration: N/A Intensity: N/A - Maternal Vital Signs Maternal Temperature: N/A Maternal Blood Pressure: N/A Signs of Preeclampsia: N/A Maternal Respirations: N/A - Maternal Trauma Maternal Trauma: N/A - Total Score - Baby A Total Score - Baby A: 0 - Total Score - Baby B Total Score - Baby B: 0 - Total Score - Baby C Total Score - Baby C: 0 - Level of Risk - Baby A Level of Risk - Baby A: Low (0-5) - Level of Risk - Baby B Level of Risk - Baby B: Low (0-5) - Level of Risk - Baby C Level of Risk - Baby C: Low (0-5) Physician Notification (Pre) - Physician Notified Physician Notified Date: 05/04/19 Physician Notified Time: 20:00 Physician/Practitioner Notifed:: Octaviano Finn Order Received: Yes Disposition - Disposition OB Disposition: Discharge to home, Written follow up instructions reviewed Discharge Date: 05/04/19 Discharge Time: 20:08 I agree with the RN Medical Screening Exam: Yes Risk & Benefit of care provided described in d/c instruction: Yes Diagnosis: RELATED CONDITIONS, UNSPECIFIED, SECOND TRIMESTER
== END 2019-05-04 20:08 | disposition home or self-care (01) ==
LOC: FBPOP 19:00
PROVIDERS: ATTEND Obstetrics & Gynecology
DX: O26.92 Pregnancy related conditions, unspecified, second trimester (principal); Z3A.22 22 weeks gestation of pregnancy
CPT/HCPCS: 81003; 99213

== ENCOUNTER 2019-08-19 12:10 | Outpatient (CLI) | payer OTHER ==
[2019-08-19 12:43] VITALS: BP 127/75; PULSE 101; RESP 16; TEMP 96.8
[2019-08-19 12:51] LABS: Amorphous Sediment,Urine Rare /hpf; Appearance,Urine Cloudy (Clear); Bacteria,Urine Many /hpf; Bilirubin,Urine Negative (Negative); Blood,Urine Negative (Negative); Color,Urine Light Yellow; Glucose,Urine (UA) Negative (Negative); Ketones,Urine Negative (Negative); Leukocyte Esterase,Urine Small (Negative); Mucus,Urine Rare /hpf; Nitrite,Urine Negative (Negative); Protein,Urine Negative (Negative); RBC,Urine 3 /hpf (0-5); Specific Gravity,Urine 1.009 (1.001-1.035); Squamous Epithelial Cell,Urine 2 /hpf (0-4); Urobilinogen,Urine <2.0 mg/dL (<2.0); WBC,Urine 17 /hpf (0-5)
--- NOTE | 2019-09-05 08:19 | P.MSEPDOC ---
Presenting Problems - Arrival Data Date of Arrival on Unit: 08/19/19 Time of Arrival on Unit: 12:10 Mode of Transport: Ambulatory - Complaint OB-Reason for Admission/Chief Complaint: Possible Onset of Labor Medical History - Information : 3 Para: 1 Number of Living Children: 1 - Gestational Age Gestational Age by VARGAS (wks/days): 38 Weeks and 0 Days Review of Systems - Review of Systems Constitutional: No problems Breast: No problems ENT: No problems Cardiovascular: No problems Respiratory: No problems Gastrointestinal: No problems Genitourinary: No problems Musculoskeletal: No problems Neurological: No problems Skin: No problems Vital Signs - Temperature Temperature: 96.8 F Temperature Source: Temporal Artery Scan - Pulse Right Sitting Brachial Pulse Rate: 101 Pulse Assessment Method: Automatic Cuff - Respirations Respiratory Rate: 16 Oxygen Delivery Method: Room Air O2 Sat by Pulse Oximetry: 99 - Blood Pressure Right Arm Sitting Blood Pressure: 127/75 Blood Pressure Mean: 92 Blood Pressure Source: Automatic Cuff Medical Screen Scoring (Pre) - Cervical Exam Dilation: 1-3 cm = 1 Effacement: Exam Deferred Membranes: Intact - Uterine Contractions Frequency: > 5 minutes apart = 1 Duration: > 40 seconds = 2 Intensity: N/A - Maternal Vital Signs Maternal Temperature: N/A Maternal Blood Pressure: N/A Signs of Preeclampsia: N/A Maternal Respirations: N/A - Maternal Trauma Maternal Trauma: N/A - Assessment - Baby A Baseline FHR: 130 Heart Rate - NICHD Category: Category II (Indeterminate) = 3 NST: Reactive Position: N/A Station: N/A - Total Score - Baby A Total Score - Baby A: 7 - Total Score - Baby B Total Score - Baby B: 4 - Total Score - Baby C Total Score - Baby C: 4 - Level of Risk - Baby A Level of Risk - Baby A: Medium (6-9) - Level of Risk - Baby B Level of Risk - Baby B: Low (0-5) - Level of Risk - Baby C Level of Risk - Baby C: Low (0-5) Physician Notification (Post) - Physician Notified Physician Notified Date: 08/19/19 Physician Notified Time: 12:56 Physician/Practitioner Notified:: dr Mobley Spoke With: dr Mobley New Order Received: (discharge pt home with instruction to call office tomorrow for f/u for UTI) Disposition - Disposition OB Disposition: Discharge to home Discharge Date: 08/19/19 Discharge Time: 13:01 I agree with the RN Medical Screening Exam: Yes Risk & Benefit of care provided described in d/c instruction: Yes Diagnosis: FALSE LABOR AT OR AFTER 37 COMPLETED WEEKS OF GESTATION
== END 2019-08-19 13:03 | disposition home or self-care (01) ==
LOC: FBPOP 12:10
PROVIDERS: ATTEND Obstetrics & Gynecology
DX: O47.1 False labor at or after 37 completed weeks of gestation (principal); Z3A.38 38 weeks gestation of pregnancy
CPT/HCPCS: 59025; 81001; 99213

== ENCOUNTER 2019-08-27 05:46 | Inpatient (IN) | payer OTHER ==
--- NOTE | 2019-08-26 16:39 | P.HPOB ---
History of Present Illness H&P Date: 08/26/19 Chief Complaint: Presenting for primary C/S This patient is a pleasant 28 yr female EDC 09/02/2019 estimated gestational age 39wk1d who presents to L&D for primary section due to previous traumatic vaginal delivery (large 4th degree laceration). was complicated by a isolated choriod plexus cyst but this was evaluated by MFM and resolved. Patient's 1st baby was 8#7oz and delivery complicated by a large 4th degree laceration, which healed well, however this baby is estimated to be large as well and she does not want to risk rectal injury. Review of Systems Genitourinary: Reports Menstruation: Reports amenorrhea Past Medical History Past Medical History: Asthma, GERD/Reflux Additional Past Medical History / Comment(s): migraines, heart murmur, abdominal pain, seeing neurologist for headaches (occipital nerves are inflammed), sport induced asthma as teenager, recent palpitations & chest pain-upcoming appt. w/card. History of Any Multi-Drug Resistant Organisms: None Reported Past Surgical History: Breast Surgery Additional Past Surgical History / Comment(s): D&C x2, lumpectomy-rt breast, Past Anesthesia/Blood Transfusion Reactions: Motion Sickness, Postoperative Nausea & Vomiting (PONV) Past Psychological History: Anxiety Smoking Status: Never smoker Past Alcohol Use History: None Reported Past Drug Use History: None Reported - Past Family History Mother Family Medical History: No Reported History Medications and Allergies Home Medications Medication Instructions Recorded Confirmed Type Pyridoxine HCl (Vitamin B6) 100 mg PO DAILY 02/21/19 08/19/19 History [Vitamin B-6] Allergies Allergy/AdvReac Type Severity Reaction Status Date / Time latex Allergy Rash/Hives Verified 08/19/19 12:31 pseudoephedrine HCl Allergy Anaphylaxis Verified 08/19/19 12:31 [From [facility]] Exam - OBG Physical Exam Abdomen: bowel sounds normal, no diffuse tenderness, no bruit present, no guarding noted, no hepatomegaly, no splenomegaly, no mass Vulva: both: normal Vagina: normal moisture, no discharge Cervix: no lesion, no discharge Uterus: enlarged (Fundal height is 40 cm) Results Blood type is O positive, Rubella Immune, RPR-HepB negative, Normal anatom y/growth ultrasounds. GBS was negative Assessment and Plan Assessment: This is a pleasant 28 yr old female 39wks estimated gestation with history of significant 4th degree laceration requesting primary section. I have discussed this surgery and risks: infection, bleeding, possible injury to bowel/bladder/vessels/other organs. Risk of DVT and PE. All of the patients questions were answered and a written consent obtained. (1) 39 weeks gestation of Status: Acute Code(s): Z3A.39 - 39 WEEKS GESTATION OF SNOMED Code(s): 34939618 (2) Fourth degree perineal laceration affecting delivery Status: Acute Code(s): O70.3 - FOURTH DEGREE PERINEAL LACERATION DURING DELIVERY SNOMED Code(s): 601592285
[2019-08-27] MEDS ORDERED: LACTATED RINGERS 1,000 ML IV SCH (05:55)
[2019-08-27] MEDS ORDERED: LACTATED RINGERS 1,000 ML IV ONE (05:55)
[2019-08-27] MEDS ORDERED: CITRIC ACID-SODIUM CITRATE 15 ML CUP PO ONE (05:55)
[2019-08-27 06:00] VITALS: RESP 16; BMI 27.3
[2019-08-27 06:20] LABS: Basophils % (A) 0 %; Eosinophils # (A) 0.1 k/uL (0-0.7); Eosinophils % (A) 1 %; HCT 35.1 % (34.0-46.0); HGB 11.7 gm/dL (11.4-16.0); Lymphocytes % (A) 20 %; MCH 29.3 pg (25.0-35.0); MCHC 33.5 g/dL (31.0-37.0); MCV 87.5 fL (80.0-100.0); Mean Platelet Volume 6.8; Monocytes # (A) 0.6 k/uL (0-1.0); Monocytes % (A) 6 %; Neutrophils # (A) 6.7 k/uL (1.3-7.7); Neutrophils % (A) 69 %; Platelet Count 296 k/uL (150-450); RBC 4.01 m/uL (3.80-5.40); RDW 12.5 % (11.5-15.5); WBC 9.6 k/uL (3.8-10.6)
[2019-08-27] MEDS ORDERED: MORPHINE SULFATE (PF) 0.3 MG/0.3 ML SYR ONE (07:47)
[2019-08-27] MEDS ORDERED: OXYTOCIN 10 UNIT/ML 1 ML VIAL ONE (07:47)
[2019-08-27] MEDS ORDERED: KETOROLAC 30 MG/ML 1 ML VIAL ONE (07:47)
[2019-08-27] MEDS ORDERED: ONDANSETRON 4 MG/2 ML VIAL ONE (07:47)
[2019-08-27] MEDS ORDERED: HYDROmorphone (PF) 1 MG/ML ONE (07:47)
[2019-08-27] MEDS ORDERED: NALBUPHINE 10 MG/ML (1 ML AMP) ONE (07:47)
--- NOTE | 2019-08-27 08:41 | P.OP ---
Date of Procedure: 08/27/19 Preoperative Diagnosis: #1: 39 and one sevenths week intrauterine . #2: Previous fourth degree laceration requesting section. Postoperative Diagnosis: Same Procedure(s) Performed: Primary low transverse section Anesthesia: spinal Surgeon: Mitch Shearer Radar Operator #1: Lissette Valles Estimated Blood Loss (ml): 800 Pathology: none sent Condition: stable Disposition: floor Indications for Procedure: Please see dictated H&P for intimate details of this patient's admission. In brief summary this is a pleasant 28-year-old 3 para 1 female 39 and one sevenths weeks gestation who is admitted to labor and delivery for primary section due to history of previous significant for degree laceration. Patient understands this surgery and risks including risks of infection, bleeding, possible injury to bowel, bladder, vessels, and/or other organs. Patient also understands risk of DVT and pulmonary embolism. All the patient's questions are answered and a written consent is obtained. Operative Findings: This was a vigorous viable male Apgars 9 and 9 delivery time is 0809 hrs. has spontaneous respirations and good cry and grossly appears normal Description of Procedure: This patient has a Hernandez catheter placed to straight drain. She is subsequently taken to the operating room and appropriate timeout is done. Patient is then sat up and spinal anesthetic is administered without incident. With an adequate level of anesthesia she has abdominal prep and drape. Scalpels then taken and a Pfannenstiel skin incision is then made. A second scalpel is taken down the fascia the fascia scored with a knife. Fascial incision extended bilaterally using the Youssef scissors. Fascia is dissected off the rectus muscles sharply. Rectus muscles are then the peritoneum identified and entered sharply. Bladder blade is then placed. Bladder peritoneum was then made sharply. A scalpel is taken low transverse uterine incision is made. Using a hemostat I enter the uterine cavity bluntly. There is loss of clear fluid. This incision is then extended bluntly. 's head is then guided through the incision with fundal pressure delivered. Mouth and nares are bulb suctioned. There is no evidence of nuchal cord. With more fundal pressure deliver the anterior posterior shoulder and rest this infant's body. This is a vigorous viable male infant Apgars are 9 and 9 delivery time is 0809 hrs. After delivery of the infant the umbilical cord is doubly clamped and cut it appears to be trivascular. The placenta is then manually extracted intact. Uterus is then externalized uterine incision demarcated with Larry clamps. Uterine cavity appears to be free of all debris. Uterine incision then closed using 0 Vicryl running locked fashion 2 layers. Excellent hemostasis is noted. The bladder peritoneum was then reapproximated using a 3-0 Vicryl. Excess fluid is removed from the abdomen and pelvis. Uterus tubes and ovaries appear normal for term gestation. Uterus is placed back into the abdomen. The parietal peritoneum was then identified. Again inspection of the incision shows to be hemostatic. The parietal incision is then closed using 0 Vicryl running fashion. Rectus muscles reapproximated in 0 Vicryl ruptured fashion. The fascia is then closed using 0 PDS. Fascial incision is intact and hemostatic. Subcutaneous tissues and closed using a 3-0 Vicryl. Skin is and closed using nohemi. Sterile dressing is then applied. All counts are correct 3. There are no complications. Infant and mother taken the birthing suite in satisfactory condition.
[2019-08-27] MEDS ORDERED: LANOLIN CREAM 5 GM TUBE TOPICAL PRN (08:51)
[2019-08-27] MEDS ORDERED: diphenhydrAMINE 25 MG CAP PO PRN (08:51)
[2019-08-27] MEDS ORDERED: ONDANSETRON 4 MG/2 ML VIAL IVP PRN (08:51)
[2019-08-27] MEDS ORDERED: diphenhydrAMINE 50 MG/ML 1 ML VIAL IVP PRN (08:51)
[2019-08-27] MEDS ORDERED: NALOXONE 0.4 MG/ML 1 ML VIAL IV PRN (08:51)
[2019-08-27] MEDS ORDERED: METOCLOPRAMIDE 5 MG/ML 2 ML VIAL IVP PRN (08:51)
[2019-08-27] MEDS ORDERED: SIMETHICONE 80 MG CHEWABLE PO PRN (08:51)
[2019-08-27] MEDS ORDERED: ZOLPIDEM 5 MG TAB PO PRN (08:51)
[2019-08-27] MEDS ORDERED: OXYTOCIN 20 UNITS/1000 ML NS 1,000 ML IV SCH (08:51)
[2019-08-27] MEDS: KETOROLAC 30 MG/ML 1 ML VIAL IVP PRN ×2 (16:44→22:04)
[2019-08-27] MEDS: SENNOSIDES-DOCUSATE SODIUM 1 EACH TAB PO SCH ×2 (17:07→21:13)
[2019-08-27] MEDS: LACTATED RINGERS 1,000 ML IV SCH ×2 (17:08→18:05)
[2019-08-28] MEDS: LACTATED RINGERS 1,000 ML IV SCH (01:15)
[2019-08-28] MEDS: KETOROLAC 30 MG/ML 1 ML VIAL IVP PRN (05:36)
[2019-08-28] MEDS ORDERED: DIPH,PERTUS(ACELL)TETVAC-LF 0.5 ML VIAL IM ONE (06:53)
--- NOTE | 2019-08-28 06:57 | P.PNOBGPC ---
Subjective - Subjective Patient reports: Reports appetite normal, Reports voiding normally, Reports pain well controlled, Reports ambulating normally : doing well Objective - Vital Signs Latest vital signs: Vital Signs Temp Pulse Resp BP Pulse Ox 08/28/19 04:00 98.4 F 80 16 104/71 98 08/28/19 00:00 98 F 77 16 103/54 98 08/27/19 20:00 98.2 F 74 16 113/62 08/27/19 16:00 98.3 F 65 16 121/75 08/27/19 12:00 96.5 F L 78 16 114/65 98 08/27/19 10:34 97.7 F 72 16 118/66 08/27/19 10:04 78 16 122/78 98 08/27/19 09:34 76 16 119/53 98 08/27/19 09:19 84 16 109/70 97 08/27/19 09:04 79 16 109/70 98 08/27/19 08:49 81 16 108/63 98 08/27/19 08:34 96.8 F L 83 16 103/59 98 Intake and Output 08/27/19 08/27/19 08/28/19 14:59 22:59 06:59 Output Total 900 500 Balance -900 -500 Output: Urine 900 500 Other: # Voids 1 1 - Exam Lungs: bilateral: normal Chest: Normal S1, Normal S2 Extremities: Present: normal Abdomen: Present: normal appearance, soft. Absent: distention, tenderness Incision: Present: normal, dry, intact Uterus: Present: normal, firm Assessment and Plan Assessment: Postoperative day #1. Patient is resting without complaints. Vital signs are stable she is afebrile. Uterus is firm nontender and her incision is intact and dry. Plan today is to encourage ambulation, allow the patient to shower, check CBC, and continue routine postoperative care. (1) 39 weeks gestation of Current Visit: No Status: Acute Code(s): Z3A.39 - 39 WEEKS GESTATION OF SNOMED Code(s): 76306821 (2) Fourth degree perineal laceration affecting delivery Current Visit: No Status: Acute Code(s): O70.3 - FOURTH DEGREE PERINEAL LACERATION DURING DELIVERY SNOMED Code(s): 229712879
--- NOTE | 2019-08-28 07:42 | P.PN ---
Progress Note - Text Progress Note Date: 08/28/19 28-year-old female status post section with Duramorph spinal. Patient doing well no complications. Minimal pruritus. VAS is between a 2-410 in severity. Ambulating no issues. Tolerating her diet well.
[2019-08-28 08:16] LABS: Basophils % (A) 0 %; Eosinophils % (A) 1 %; HCT 30.1 % (34.0-46.0); HGB 10.2 gm/dL (11.4-16.0); Lymphocytes # (A) 1.3 k/uL (1.0-4.8); Lymphocytes % (A) 13 %; MCH 30.3 pg (25.0-35.0); MCHC 34.1 g/dL (31.0-37.0); Mean Platelet Volume 6.4; Monocytes # (A) 0.6 k/uL (0-1.0); Monocytes % (A) 6 %; Neutrophils # (A) 7.7 k/uL (1.3-7.7); Neutrophils % (A) 78 %; Platelet Count 268 k/uL (150-450); RBC 3.38 m/uL (3.80-5.40); RDW 12.3 % (11.5-15.5); WBC 9.9 k/uL (3.8-10.6)
[2019-08-28] MEDS: ACETAMINOPHEN TAB 325 MG TAB PO PRN ×2 (08:23→14:58)
[2019-08-28] MEDS: SENNOSIDES-DOCUSATE SODIUM 1 EACH TAB PO SCH ×2 (08:24→19:43)
[2019-08-28] MEDS: IBUPROFEN 600 MG TAB PO PRN ×2 (11:48→17:48)
[2019-08-28] MEDS: HYDROcodone/APAP 5-325MG 1 EACH TAB PO PRN (19:42)
[2019-08-29] MEDS: IBUPROFEN 600 MG TAB PO PRN ×2 (00:02→06:12)
[2019-08-29] MEDS: HYDROcodone/APAP 5-325MG 1 EACH TAB PO PRN (03:00)
[2019-08-29] MEDS ORDERED: HYDROcodone/APAP 7.5-325MG 1 EACH TAB PO PRN (04:45)
--- NOTE | 2019-08-29 06:43 | P.PNOBGPC ---
Subjective - Subjective Patient reports: Reports appetite normal, Reports voiding normally, Reports pain well controlled, Reports ambulating normally : doing well Objective - Vital Signs Latest vital signs: Vital Signs Temp Pulse Resp BP Pulse Ox 08/28/19 23:52 98.2 F 90 16 118/71 08/28/19 16:00 97.6 F 85 16 112/69 97 08/28/19 08:00 98.2 F 76 16 103/61 Intake and Output 08/28/19 08/28/19 08/29/19 14:59 22:59 06:59 Other: # Voids 1 2 1 - Exam Lungs: bilateral: normal Chest: Normal S1, Normal S2 Extremities: Present: normal Abdomen: Present: normal appearance, soft. Absent: distention, tenderness Incision: Present: normal, dry, intact Uterus: Present: normal, firm - Labs Labs: Abnormal Lab Results - Last 24 Hours (Table) 08/28/19 Range/Units 07:39 RBC 3.38 L (3.80-5.40) m/uL Hgb 10.2 L (11.4-16.0) gm/dL Hct 30.1 L (34.0-46.0) % Assessment and Plan Assessment: Postoperative day #2. Patient is resting and wishes to go home. Patient has some gas pains last evening however she is tolerating regular diet and passing flatus. Vital signs are stable and she is afebrile. CBC yesterday was normal. My impression this is a normal /post operative course. Plan will be to continue routine postoperative care and discharge home today if she desires. (1) 39 weeks gestation of Current Visit: No Status: Acute Code(s): Z3A.39 - 39 WEEKS GESTATION OF PREG FORREST SNOMED Code(s): 10820983 (2) Fourth degree perineal laceration affecting delivery Current Visit: No Status: Acute Code(s): O70.3 - FOURTH DEGREE PERINEAL LACERATION DURING DELIVERY SNOMED Code(s): 500673490
--- NOTE | 2019-08-29 06:50 | P.DS ---
Providers Date of admission: 08/27/19 05:46 Expected date of discharge: 08/29/19 Attending physician: Mitch Shearer Primary care physician: Sae Linaresio - Discharge Diagnosis(es) (1) 39 weeks gestation of Current Visit: No Status: Acute (2) Fourth degree perineal laceration affecting delivery Current Visit: No Status: Acute Hospital Course: Please see dictated H&P for intimate details of this patient's admission. Brief summary is a pleasant 28-year-old 3 para 1 female 39 and one sevenths weeks gestation who is admitted to labor and delivery for elective primary section due to history of traumatic delivery (fourth degree). Patient underwent a primary low transverse section for viable male infant. Please see dictated delivery note. Postoperative #2 patient's felt be stable for discharge home follow up with me in 1 week. Procedures: Primary low transverse section Patient Condition at Discharge: Good Plan - Discharge Summary New Discharge Prescriptions: New Ibuprofen [Motrin] 600 mg PO Q6HR PRN #30 tab PRN Reason: Mild Pain Or Fever >= 100.5 HYDROcodone/APAP 7.5-325MG [[place] 7.5-325] 1 each PO Q6H PRN #12 tab PRN Reason: Pain No Action Pyridoxine HCl (Vitamin B6) [Vitamin B-6] 100 mg PO DAILY Pedi Multivit No.25/Folic Acid [[place] Multivit Chew Tab] 2 tab PO DAILY Discharge Medication List Pyridoxine HCl (Vitamin B6) [Vitamin B-6] 100 mg PO DAILY 02/21/19 [History] Pedi Multivit No.25/Folic Acid [[place] Multivit Chew Tab] 2 tab PO DAILY 08/27/19 [History] HYDROcodone/APAP 7.5-325MG [[place] 7.5-325] 1 each PO Q6H PRN #12 tab 08/29/19 [Rx] Ibuprofen [Motrin] 600 mg PO Q6HR PRN #30 tab 08/29/19 [Rx] Follow up Appointment(s)/Referral(s): Mitch Shearer MD [STAFF PHYSICIAN] - 09/04/19 8:30 am (Please see me for a visit on October 08 11:15 AM as well.) Patient Instructions/Handouts: (DC) Activity/Diet/Wound Care/Special Instructions: No heavy lifting or strenuous activities for 6 weeks. No intercourse or anything per vagina for 6 weeks. Please call if any fever, chills, excessive vaginal bleeding, and/or abdominal pain. Discharge Disposition: HOME SELF-CARE
[2019-08-29] MEDS: SENNOSIDES-DOCUSATE SODIUM 1 EACH TAB PO SCH (07:53)
[2019-08-29 07:58] VITALS: BP 113/68; PULSE 87; TEMP 97.8
== END 2019-08-29 10:50 | disposition home or self-care (01) | DRG 788 ==
LOC: 4FBP 05:46
PROVIDERS: ADMIT Obstetrics & Gynecology; ATTEND Obstetrics & Gynecology
PROC: 10D00Z1 Extraction of Products of Conception, Low, Open Approach (ICD-10-PCS; principal; 2019-08-27 08:00)
DX: O34.83 Maternal care for other abnormalities of pelvic organs, third trimester (principal); Z3A.39 39 weeks gestation of pregnancy; Z37.0 Single live birth; F41.9 Anxiety disorder, unspecified; J45.909 Unspecified asthma, uncomplicated; K21.9 Gastro-esophageal reflux disease without esophagitis; O99.344 Other mental disorders complicating childbirth; O99.52 Diseases of the respiratory system complicating childbirth; O99.62 Diseases of the digestive system complicating childbirth; Z88.8 Allergy status to other drugs, medicaments and biological substances; Z91.040 Latex allergy status
CPT/HCPCS: 85025; 86850; 86900; 86901; 90715

== ENCOUNTER 2019-10-02 03:49 | Observation (INO) | payer OTHER ==
[2019-10-02] MEDS ORDERED: HYDROmorphone 1 MG/ML 1 ML SYRINGE ONE (04:51)
[2019-10-02] MEDS ORDERED: SODIUM CHLORIDE 0.9% 1,000 ML BAG ONE (04:51)
[2019-10-02] MEDS ORDERED: HYDROmorphone 0.5 MG/0.5 ML SYRINGE ONE (04:51)
[2019-10-02] MEDS ORDERED: ONDANSETRON 4 MG/2 ML VIAL ONE (04:51)
[2019-10-02] MEDS ORDERED: PIPERACILLIN-TAZOBACTAM 3.375 GM in SODIUM CHLORIDE 0.9% 100 ML IVPB STA (06:50)
[2019-10-02 07:42] LABS: Basophils % (A) 0 %; Eosinophils # (A) 0.1 k/uL (0-0.7); Eosinophils % (A) 1 %; HCT 40.3 % (34.0-46.0); Lymphocytes # (A) 1.7 k/uL (1.0-4.8); Lymphocytes % (A) 13 %; MCH 29.5 pg (25.0-35.0); MCHC 34.6 g/dL (31.0-37.0); MCV 85.3 fL (80.0-100.0); Monocytes # (A) 0.7 k/uL (0-1.0); Monocytes % (A) 5 %; Neutrophils # (A) 10.1 k/uL (1.3-7.7); Neutrophils % (A) 80 %; Platelet Count 282 k/uL (150-450); RBC 4.72 m/uL (3.80-5.40); WBC 12.7 k/uL (3.8-10.6)
[2019-10-02 07:52] LABS: ALT 29 U/L (9-52); AST 25 U/L (14-36); African American GFR (CKD) >90 (>60 ml/min/1.73 sqM); Albumin 4.2 g/dL (3.5-5.0); Alkaline Phosphatase 85 U/L (38-126); Anion Gap 10 mmol/L; Blood Urea Nitrogen 15 mg/dL (7-17); Calcium 9.4 mg/dL (8.4-10.2); Carbon Dioxide 23 mmol/L (22-30); Chloride 106 mmol/L (98-107); Creatine Kinase 40 U/L (30-135); Glucose 110 mg/dL (74-99); HGB 13.9 gm/dL (11.4-16.0); Magnesium 1.8 mg/dL (1.6-2.3); Non-African American GFR(CKD) >90 (>60 ml/min/1.73 sqM); Potassium 3.9 mmol/L (3.5-5.1); Sodium 139 mmol/L (137-145); Total Bilirubin 0.5 mg/dL (0.2-1.3); Total Protein 7.1 g/dL (6.3-8.2)
[2019-10-02 08:07] LABS: Appearance,Urine Clear (Clear); Bilirubin,Urine Negative (Negative); Blood,Urine Negative (Negative); Color,Urine Light Yellow; Glucose,Urine (UA) Negative (Negative); Hyaline Casts,Urine 1 /lpf (0-2); Ketones,Urine Negative (Negative); Leukocyte Esterase,Urine Trace (Negative); Nitrite,Urine Negative (Negative); Protein,Urine Negative (Negative); RBC,Urine <1 /hpf (0-5); Specific Gravity,Urine 1.017 (1.001-1.035); Squamous Epithelial Cell,Urine 1 /hpf (0-4); Urobilinogen,Urine <2.0 mg/dL (<2.0); WBC,Urine 3 /hpf (0-5)
--- NOTE | 2019-10-02 08:59 | P.GSHP ---
<Phylicia Resendez A - Last Filed: 10/02/19 08:55> History of Present Illness H&P Date: 10/02/19 Chief Complaint: abdominal pain CHIEF COMPLAINT: Abdominal pain HISTORY OF PRESENT ILLNESS: 28-year-old female who presented to the emergency room with a chief complaint of abdominal pain. Patient states she had a C- section about 5 weeks ago. She is not . She was out running errands yesterday when she developed abdominal pain. She thought she pulled a muscle or had some pain secondary to recent . She went home and took some Motrin and tried to lay down. She states the pain continued to get worse. She began to feel nauseous. She denies vomiting. Denies fever or chills. PAST MEDICAL HISTORY: See list. PAST SURGICAL HISTORY: See list. SOCIAL HISTORY: No illicit drug use. REVIEW OF SYSTEMS: CONSTITUTIONAL: Denies fever or chills. HEENT: Denies blurred vision, vision changes, or eye pain. Denies hemoptysis CARDIOVASCULAR: Denies chest pain or pressure. RESPIRATORY: No shortness of breath. GASTROINTESTINAL: Refer to HPI for pertinent findings HEMATOLOGIC: Denies bleeding disorders. GENITOURINARY: Denies any blood in urine. SKIN: Denies pruitis. Denies rash. PHYSICAL EXAM: VITAL SIGNS: Reviewed. GENERAL: Well-developed in no acute distress. HEENT: No sclera icterus. Extraocular movements grossly intact. Moist buccal mucosa. Head is atraumatic, normocephalic. ABDOMEN: Soft. Nondistended. Tenderness with palpation to right lower quadrant. Recent incision healing well without erythema or drainage. NEUROLOGIC: Alert and oriented. Cranial nerves II through XII grossly intact. LABORATORY DATA: WBC 12.7. Hemoglobin 13.9. Platelet count 282. IMAGING: CT abdomen and pelvis: Findings compatible acute appendicitis. ASSESSMENT: 1. Abdominal pain 2. Acute appendicitis 3. Five weeks post , PLAN: 1. NPO. Continue IV fluids. 2. Monitor WBC. Continue antibiotics 3. Patient to undergo laparoscopic appendectomy today with Dr. Kuo Nurse practitioner note has been reviewed by physician. Signing provider agrees with the documented findings, assessment, and plan of care. Past Medical History Past Medical History: Asthma, GERD/Reflux Additional Past Medical History / Comment(s): migraines, heart murmur, abdominal pain, seeing neurologist for headaches (occipital nerves are inflammed), sport induced asthma as teenager, recent palpitations & chest pain-upcoming appt. w/card. History of Any Multi-Drug Resistant Organisms: None Reported Past Surgical History: Breast Surgery Additional Past Surgical History / Comment(s): D&C x2, lumpectomy-rt breast, Past Anesthesia/Blood Transfusion Reactions: Motion Sickness, Postoperative Nausea & Vomiting (PONV) Past Psychological History: Anxiety Additional Psychological History / Comment(s): not medicated during Smoking Status: Never smoker Past Alcohol Use History: None Reported Past Drug Use History: None Reported - Past Family History Father Family Medical History: AFIB, Hypertension, Thyroid Disorder Mother Family Medical History: No Reported History Medications and Allergies Home Medications Medication Instructions Recorded Confirmed Type Ibuprofen [Motrin] 600 mg PO Q6HR PRN #30 tab 08/29/19 10/02/19 Rx L.acidoph,Paracasei, B.lactis 1 cap PO DAILY 10/02/19 10/02/19 History [Probiotic] Allergies Allergy/AdvReac Type Severity Reaction Status Date / Time latex Allergy Rash/Hives Verified 10/02/19 08:51 pseudoephedrine HCl Allergy Anaphylaxis Verified 10/02/19 08:51 [From [facility]] Surgical - Exam Vital Signs Temp Pulse Resp BP Pulse Ox 98.4 F 104 H 18 132/86 100 10/02/19 07:50 10/02/19 07:50 10/02/19 07:50 10/02/19 07:50 10/02/19 07:50 Results - Labs 10/02/19 04:05 10/02/19 04:05 Abnormal Lab Results - Last 24 Hours (Table) 10/02/19 10/02/19 Range/Units 04:05 04:05 WBC 12.7 H (3.8-10.6) k/uL Neutrophils # 10.1 H (1.3-7.7) k/uL Glucose 110 H (74-99) mg/dL Diabetes panel 10/02/19 Range/Units 04:05 Sodium 139 (137-145) mmol/L Potassium 3.9 (3.5-5.1) mmol/L Chloride 106 (98-107) mmol/L Carbon Dioxide 23 (22-30) mmol/L BUN 15 (7-17) mg/dL Creatinine 0.61 (0.52-1.04) mg/dL Glucose 110 H (74-99) mg/dL Calcium 9.4 (8.4-10.2) mg/dL AST 25 (14-36) U/L ALT 29 (9-52) U/L Alkaline Phosphatase 85 (38-126) U/L Total Protein 7.1 (6.3-8.2) g/dL Albumin 4.2 (3.5-5.0) g/dL Calcium panel 10/02/19 Range/Units 04:05 Calcium 9.4 (8.4-10.2) mg/dL Albumin 4.2 (3.5-5.0) g/dL Pituitary panel 10/02/19 Range/Units 04:05 Sodium 139 (137-145) mmol/L Potassium 3.9 (3.5-5.1) mmol/L Chloride 106 (98-107) mmol/L Carbon Dioxide 23 (22-30) mmol/L BUN 15 (7-17) mg/dL Creatinine 0.61 (0.52-1.04) mg/dL Glucose 110 H (74-99) mg/dL Calcium 9.4 (8.4-10.2) mg/dL Adrenal panel 10/02/19 Range/Units 04:05 Sodium 139 (137-145) mmol/L Potassium 3.9 (3.5-5.1) mmol/L Chloride 106 (98-107) mmol/L Carbon Dioxide 23 (22-30) mmol/L BUN 15 (7-17) mg/dL Creatinine 0.61 (0.52-1.04) mg/dL Glucose 110 H (74-99) mg/dL Calcium 9.4 (8.4-10.2) mg/dL Total Bilirubin 0.5 (0.2-1.3) mg/dL AST 25 (14-36) U/L ALT 29 (9-52) U/L Alkaline Phosphatase 85 (38-126) U/L Total Protein 7.1 (6.3-8.2) g/dL Albumin 4.2 (3.5-5.0) g/dL <Vamshi Kuo - Last Filed: 10/02/19 11:00> Surgical - Exam Vital Signs Temp Pulse Resp BP Pulse Ox 98.4 F 104 H 18 132/86 100 10/02/19 07:50 10/02/19 07:50 10/02/19 07:50 10/02/19 07:50 10/02/19 07:50 Results - Labs 10/02/19 04:05 10/02/19 04:05 Abnormal Lab Results - Last 24 Hours (Table) 10/02/19 10/02/19 10/02/19 Range/Units 04:05 04:05 05:30 WBC 12.7 H (3.8-10.6) k/uL Neutrophils # 10.1 H (1.3-7.7) k/uL Glucose 110 H (74-99) mg/dL Ur Leukocyte Esterase Trace H (Negative) Diabetes panel 10/02/19 Range/Units 04:05 Sodium 139 (137-145) mmol/L Potassium 3.9 (3.5-5.1) mmol/L Chloride 106 (98-107) mmol/L Carbon Dioxide 23 (22-30) mmol/L BUN 15 (7-17) mg/dL Creatinine 0.61 (0.52-1.04) mg/dL Glucose 110 H (74-99) mg/dL Calcium 9.4 (8.4-10.2) mg/dL AST 25 (14-36) U/L ALT 29 (9-52) U/L Alkaline Phosphatase 85 (38-126) U/L Total Protein 7.1 (6.3-8.2) g/dL Albumin 4.2 (3.5-5.0) g/dL Calcium panel 10/02/19 Range/Units 04:05 Calcium 9.4 (8.4-10.2) mg/dL Albumin 4.2 (3.5-5.0) g/dL Pituitary panel 10/02/19 Range/Units 04:05 Sodium 139 (137-145) mmol/L Potassium 3.9 (3.5-5.1) mmol/L Chloride 106 (98-107) mmol/L Carbon Dioxide 23 (22-30) mmol/L BUN 15 (7-17) mg/dL Creatinine 0.61 (0.52-1.04) mg/dL Glucose 110 H (74-99) mg/dL Calcium 9.4 (8.4-10.2) mg/dL Adrenal panel 10/02/19 Range/Units 04:05 Sodium 139 (137-145) mmol/L Potassium 3.9 (3.5-5.1) mmol/L Chloride 106 (98-107) mmol/L Carbon Dioxide 23 (22-30) mmol/L BUN 15 (7-17) mg/dL Creatinine 0.61 (0.52-1.04) mg/dL Glucose 110 H (74-99) mg/dL Calcium 9.4 (8.4-10.2) mg/dL Total Bilirubin 0.5 (0.2-1.3) mg/dL AST 25 (14-36) U/L ALT 29 (9-52) U/L Alkaline Phosphatase 85 (38-126) U/L Total Protein 7.1 (6.3-8.2) g/dL Albumin 4.2 (3.5-5.0) g/dL Assessment and Plan Plan: Laparoscopic appendectomy today.
[2019-10-02] MEDS: HYDROmorphone 1 MG/ML 1 ML SYRINGE IVP PRN ×2 (09:09→21:22)
[2019-10-02] MEDS ORDERED: IV FLUID CONTINUATION 1,000 ML IV ONE (12:01)
[2019-10-02] MEDS: ONDANSETRON 4 MG/2 ML VIAL IVP ONE ×2 (12:04→17:17)
[2019-10-02] MEDS ORDERED: DEXAMETHASONE SOD PHOSPHATE 10 MG/ML 1 ML VIAL IV ONE (12:05)
[2019-10-02] MEDS ORDERED: fentaNYL (PF) 50 MCG/ML 2 ML AMP IV ONE (12:05)
[2019-10-02] MEDS ORDERED: SCOPOLAMINE 1.5MG/72HR PATCH TRANSDERM ONE (12:09)
[2019-10-02] MEDS: PANTOPRAZOLE 40 MG/10 ML VIAL IVP SCH (14:00)
[2019-10-02] MEDS: PIPERACILLIN-TAZOBACTAM 3.375 GM in SODIUM CHLORIDE 0.9% 100 ML IVPB SCH (15:49)
--- NOTE | 2019-10-02 16:00 | P.CONS ---
History of Present Illness - Reason for Consult Consult date: 10/02/19 Medical management Requesting physician: Vamshi Kuo - Chief Complaint Abdominal pain - History of Present Illness 28-year-old female with PMH of exercise-induced asthma, occipital neuralgia, C- section 5 weeks prior to presentation presents to the ED for abdominal pain. Patient states that she was running errands pushing a cart yesterday when she experienced sudden onset right lower quadrant abdominal pain. This happened around 4 PM. Patient thought that she had pulled a muscle. Patient describes the pain as constant, sharp and stabbing in nature, 9 out of 10 in severity. Pain radiates to the epigastric area and to the back. Patient tried Motrin at home along with heating pad that did not help her pain. Patient also reports nausea that started around 3 AM. When her pain persisted, this prompted her to come to the ED. Patient denies any headache, lower extremity edema, vomiting, fever or chills, cough, chest pain, shortness of breath, palpitations, changes in urination or bowel habits. No changes in appetite or weight. Patient denies any dizziness, numbness/weakness/tingling of the extremities. He does report a history of palpitations that presented with chest pain which has been ongoing for years. Patient states that she has been on event monitors in the past that has been unable to capture any arrhythmias. In the ED, her vital signs are stable except for heart rate in the 90s. CBC showed leukocytosis of 12.7. CMP showed glucose of 110. Amylase and lipase was negative. Urinalysis was negative. CT of the abdomen and pelvis was performed which showed acute appendicitis. Patient has been evaluated by surgery and plan is for appendectomy this afternoon. Review of Systems Pertinent positives and negatives as discussed in HPI, a complete review of systems was performed and all other systems are negative. Past Medical History Past Medical History: Asthma, GERD/Reflux Additional Past Medical History / Comment(s): migraines, heart murmur, abdominal pain, seeing neurologist for headaches (occipital nerves are inflammed), sport induced asthma as teenager, recent palpitations & chest pain-upcoming appt. w/card. History of Any Multi-Drug Resistant Organisms: None Reported Past Surgical History: Breast Surgery Additional Past Surgical History / Comment(s): D&C x2, lumpectomy-rt breast, Past Anesthesia/Blood Transfusion Reactions: Motion Sickness, Postoperative Nausea & Vomiting (PONV) Smoking Status: Never smoker - Past Family History Father Family Medical History: AFIB, Hypertension, Thyroid Disorder Mother Family Medical History: No Reported History Medications and Allergies Home Medications Medication Instructions Recorded Confirmed Type Ibuprofen [Motrin] 600 mg PO Q6HR PRN #30 tab 08/29/19 10/02/19 Rx Hydrocodone/Acetaminophen [[place] 1 tab PO Q6HR PRN 3 Days #12 tab 10/02/19 Rx 5-325] L.acidoph,Paracasei, B.lactis 1 cap PO DAILY 10/02/19 10/02/19 History [Probiotic] Allergies Allergy/AdvReac Type Severity Reaction Status Date / Time latex Allergy Rash/Hives Verified 10/02/19 11:40 pseudoephedrine HCl Allergy Anaphylaxis Verified 10/02/19 11:40 [From [facility]] Physical Exam Vitals: Vital Signs Temp Pulse Pulse Resp BP BP Pulse Ox 10/02/19 14:04 98.3 F 86 18 116/67 96 10/02/19 11:53 99.2 F 92 16 127/80 100 10/02/19 11:30 98.3 F 94 16 113/69 10/02/19 10:49 98.3 F 16 113/69 10/02/19 09:00 98.1 F 93 16 122/80 10/02/19 07:50 98.4 F 104 H 18 132/86 100 Intake and Output 10/02/19 10/02/19 10/02/19 06:59 14:59 22:59 Other: Weight 72.575 kg General: [non toxic], [no distress], [appears at stated age] Derm: [warm], [dry] Head: [atraumatic], [normocephalic], [symmetric] Eyes: [EOMI], [no lid lag], [anicteric sclera] Mouth: [no lip lesion], [mucus membranes moist] Cardiovascular: [S1S2 reg], [no murmur], [positive DP pulse bilateral], Lungs: [CTA bilateral], [no rhonchi, no rales] , [no accessory muscle use] Abdominal: [soft], [tenderness to palpation in the right lower and right upper quadrant without rebound. Daigle sign negative. Rovsing sign positive. Obturator sign positive.], [no guarding], [no appreciable organomegaly] Ext: [no gross muscle atrophy], [no edema], [no contractures] Neuro: [ CN II-XI grossly intact], [no focal neuro deficits] Psych: [Alert], [oriented], [appropriate affect] Results CBC & Chem 7: 10/02/19 04:05 10/02/19 04:05 Labs: Abnormal Lab Results - Last 24 Hours (Table) 10/02/19 10/02/19 10/02/19 Range/Units 04:05 04:05 05:30 WBC 12.7 H (3.8-10.6) k/uL Neutrophils # 10.1 H (1.3-7.7) k/uL Glucose 110 H (74-99) mg/dL Ur Leukocyte Esterase Trace H (Negative) Assessment and Plan Assessment: Acute appendicitis History of asthma History of occipital neuralgia 5 weeks status post As seen on CT abdomen and pelvis. Patient has leukocytosis of 12.7. Plans: Continue Zosyn. Pain control with Montalba or Dilaudid as needed for severe pain. Plans for appendectomy this afternoon. Nothing by mouth. Zofran for nausea or vomiting. Protonix 40 mg IV daily. Continue normal saline at 100 mL/h. Follow surgery recommendations. Plans: Albuterol nebulizer as needed for shortness of breath and wheezing. Plans: Pain management as above. Plans: Needs follow-up with OB in the outpatient setting. DVT prophylaxis: [SCD] Discussed with: [Patient and ] Anticipated discharge: [1-2 days] Anticipated discharge place: [Home] A total of [35] minutes was spent on the care of this complex patient more than 50% of the time was spent in counseling and care coordination. Patient names her Jake decision-maker indicates that she can't make decisions for herself. Patient reiterates wanting to remain full code.
[2019-10-02] MEDS ORDERED: ACETAMINOPHEN TAB 325 MG TAB PO PRN (16:01)
[2019-10-02] MEDS ORDERED: NALOXONE 0.4 MG/ML 1 ML VIAL IV PRN (16:01)
[2019-10-02] MEDS ORDERED: ALBUTEROL NEBULIZED 2.5 MG/3 ML INHALATION PRN (16:03)
[2019-10-02] MEDS ORDERED: NEOSTIGMINE 1 MG/ML 10 ML VIAL ONE (17:47)
[2019-10-02] MEDS ORDERED: ROCURONIUM BROMIDE 10 MG/ML 10 ML VIAL IV ONE (17:47)
[2019-10-02] MEDS ORDERED: PROPOFOL 10 MG/ML 20 ML VIAL IV ONE (17:47)
[2019-10-02] MEDS ORDERED: GLYCOPYRROLATE 0.2 MG/ML 2 ML VIAL ONE (17:47)
[2019-10-02] MEDS ORDERED: MIDAZOLAM 2 MG/2 ML VIAL ONE (17:47)
[2019-10-02] MEDS ORDERED: fentaNYL (PF) 50 MCG/ML 2 ML AMP ONE (17:47)
[2019-10-02] MEDS ORDERED: diphenhydrAMINE 50 MG/ML 1 ML VIAL ONE (17:47)
[2019-10-02] MEDS ORDERED: SUCCINYLCHOLINE CHLORIDE 100 MG/5 ML SYR IV ONE (17:47)
[2019-10-02] MEDS ORDERED: LIDOCAINE 1% INJ 10MG/ML (20 ML MDV) ONE (17:47)
[2019-10-02] MEDS ORDERED: BUPIVACAINE (PF) 0.25% 30 ML VIAL SQ ONE ×2 (18:15→18:21)
[2019-10-02] MEDS ORDERED: LACTATED RINGERS 1,000 ML IV ONE ×2 (18:16)
--- NOTE | 2019-10-02 18:31 | P.OP ---
Date of Procedure: 10/02/19 Preoperative Diagnosis: Acute appendicitis Postoperative Diagnosis: Acute appendicitis Procedure(s) Performed: Laparoscopic appendectomy Anesthesia: PASCUAL Surgeon: Vamshi Kuo Estimated Blood Loss (ml): 5 Pathology: other (Appendix) Condition: stable Disposition: PACU Description of Procedure: The patient's placed on the operating table in the supine position. The patient received general anesthesia. The abdomen was prepped and draped in the usual sterile fashion. The skin was anesthetized 1% local Xylocaine at the trocar sites. Using an 11 blade the skin was incised at the umbilicus. The umbilicus was grasped with a Ramsey clamp and then a Veress needle was placed into the peritoneal cavity. Position of the Veress needle was confirmed with positive drop test. After adequate insufflation a 5 mm trocar was placed into the peritoneal cavity. The abdomen was further insufflated. And then the laparoscope was placed in the peritoneal cavity. Next a 5 mm trocar was placed in the midline suprapubic position. And then a 10 mm trocar was placed in the midline epigastric position. The patient was rotated with the right side up and in Trendelenburg. The appendix was visualized. The appendix appeared to be inflamed. The appendix was grasped and then using the Harmonic scissors the mesoappendix was divided. A PDS Endoloop was then placed around the base of the appendix. And then the appendix was divided using Harmonic scissors. The appendix was placed into an Endo Catch and brought out through the 10 mm trocar site. The abdomen was irrigated. There is no bleeding seen. The trochars withdrawn. The skin was closed interrupted 3-0 Monocryl suture. Dermabond dressing was applied. Patient was sent to recovery room in stable condition.
[2019-10-02] MEDS: SODIUM CHLORIDE 0.9% 1,000 ML IV SCH ×2 (20:37→20:38)
[2019-10-03] MEDS: PIPERACILLIN-TAZOBACTAM 3.375 GM in SODIUM CHLORIDE 0.9% 100 ML IVPB SCH ×2 (01:02→07:57)
[2019-10-03] MEDS: HYDROmorphone 1 MG/ML 1 ML SYRINGE IVP PRN ×2 (01:05→03:55)
[2019-10-03 01:40] VITALS: TEMP 97.9
[2019-10-03 07:26] LABS: Basophils # (A) 0.1 k/uL (0-0.2); Basophils % (A) 0 %; Eosinophils % (A) 0 %; HCT 37.5 % (34.0-46.0); HGB 12.4 gm/dL (11.4-16.0); Lymphocytes # (A) 1.2 k/uL (1.0-4.8); Lymphocytes % (A) 10 %; MCH 28.4 pg (25.0-35.0); MCHC 32.9 g/dL (31.0-37.0); MCV 86.1 fL (80.0-100.0); Mean Platelet Volume 6.4; Monocytes # (A) 0.7 k/uL (0-1.0); Monocytes % (A) 5 %; Neutrophils # (A) 10.1 k/uL (1.3-7.7); Neutrophils % (A) 83 %; Platelet Count 307 k/uL (150-450); RBC 4.36 m/uL (3.80-5.40); WBC 12.2 k/uL (3.8-10.6)
[2019-10-03] MEDS: HYDROcodone/APAP 5-325MG 1 EACH TAB PO PRN ×2 (07:56→12:35)
[2019-10-03 08:27] VITALS: BP 106/62; PULSE 66; RESP 16
[2019-10-03] MEDS: PANTOPRAZOLE 40 MG/10 ML VIAL IVP SCH (09:26)
--- NOTE | 2019-10-03 09:47 | P.DS ---
<Phylicia Resendez - Last Filed: 10/03/19 09:45> Providers Expected date of discharge: 10/03/19 Hospital Course: 28-year-old female who presented to the emergency room with a chief complaint of abdominal pain. Patient states she had a about 5 weeks ago. She is not . She was out running errands when she developed abdominal pain. She thought she pulled a muscle or had some pain secondary to recent . She went home and took some Motrin and tried to lay down. She states the pain continued to get worse. She began to feel nauseous. She denies vomiting. Denies fever or chills. Workup in the ER revealed evidence for acute appendicitis. Patient underwent laparoscopic appendectomy with Dr. Kuo on 10/02/2019. Patient is doing well postoperatively without any immediate complications. Vital signs are stable. She is stable for discharge home today. Please see EMR for further hospital course details. Discharge Diagnosis: 1. Abdominal pain 2. Acute appendicitis 3. Five weeks post , Nurse practitioner note has been reviewed by physician. Signing provider agrees with the documented findings, assessment, and plan of care. Patient Condition at Discharge: Stable Plan - Discharge Summary Discharge Rx Participant: Yes New Discharge Prescriptions: New Hydrocodone/Acetaminophen [[place] 5-325] 1 tab PO Q6HR PRN 3 Days #12 tab PRN Reason: Pain No Action Ibuprofen [Motrin] 600 mg PO Q6HR PRN #30 tab PRN Reason: Mild Pain Or Fever >= 100.5 L.acidoph,Paracasei, B.lactis [Probiotic] 1 cap PO DAILY Discharge Medication List Ibuprofen [Motrin] 600 mg PO Q6HR PRN #30 tab 08/29/19 [Rx] Hydrocodone/Acetaminophen [[place] 5-325] 1 tab PO Q6HR PRN 3 Days #12 tab 10/02/19 [Rx] L.acidoph,Paracasei, B.lactis [Probiotic] 1 cap PO DAILY 10/02/19 [History] Follow up Appointment(s)/Referral(s): Sae Morrissey MD [Primary Care Provider] - 1 Week Vamshi Kuo MD [STAFF PHYSICIAN] - 1 Week Patient Instructions/Handouts: Laparoscopic Appendectomy (DC) Discharge Disposition: HOME SELF-CARE <Ariel Corona - Last Filed: 10/03/19 18:05> Providers Date of admission: 10/02/19 06:35 Attending physician: Vamshi Kuo Consults: 10/02/19 08:59 Consult Physician Routine Consulting Provider: Leandro Núñez Consult Reason/Comments: medical management Do you want consulting provider notified?: Yes Primary care physician: Sae Morrissey
--- NOTE | 2019-10-03 11:05 | CT ---
EXAMINATION TYPE: CT abdomen pelvis w con DATE OF EXAM: 10/02/2019 COMPARISON: 08/28/2018 INDICATION: Right-sided abdominal pain DLP: 866.3 mGycm, Automated exposure control for dose reduction was used. CONTRAST: 100 mL of Isovue 300. Study performed without Oral Contrast TECHNIQUE: Axial images were obtained from above the diaphragm to the pubic rami in the axial plane a t 5 mm thick sections. Reconstructed images are reviewed on the computer in the coronal plane. Imag es are presented 12/03/2018 for final interpretation, previous dictation cannot be located. FINDINGS: Limited CT sections are obtained the lung bases. The lung bases are clear. Rectus excavatum is evid ent. CT ABDOMEN: Liver: There is a tiny hypodensity in the superior right lobe liver measuring 0.3 cm may be a tiny cy st, this is too small to classify. Series 201 image 19. Spleen: Normal Pancreas: Normal Adrenal glands: The adrenal glands are normal. Gallbladder: Normal Kidneys: No masses are evident. No hydronephrosis is present. No cysts are present. There is a 0.5 cm calcification in the mid posterior right kidney. Punctate calcification may be in the anterior ri ght kidney. Some mid right ureter prominence is present. This extends to a vessel and this may be due to a retrocrural vascular ureter. No additional areas suspicious for obstruction is identified. Aorta: Normal Inferior vena cava: Normal. CT PELVIS: The study is performed without oral contrast limiting bowel evaluation. Some fecal debris is within t he colon. Small bowel loops appear unremarkable. Appendix: Normal as visualized. This measures 0.7 to 0.8 cm in caliber. Small amount of free fluid is adjacent however. No wall enhancement is identified. Suspicious inflammatory changes are not clearly evident. Clinical management of any suspected appendicitis will be required. Urinary bladder: Normal. Genitourinary structures: Uterus is in the right hemipelvis. Adnexal regions are clear. Small amount of free fluid which can be physiologic is within the pelvis. Osseous structures: No suspicious lytic or sclerotic lesions. IMPRESSIONS: 1. There is some moderate right hydroureter which may be due to early retrovascular location. No add itional etiology for hydroureter is evident on the right. 2. The appendix is visualized appears within normal limits. However, there is some free fluid within the pelvis and in the right lower quadrant. Clinical management of any suspected appendicitis will be required.
== END 2019-10-03 14:00 | disposition home or self-care (01) ==
LOC: EC 03:49 → 4FBP 06:35
PROVIDERS: ADMIT Surgery; ATTEND Surgery
DX: O99.63 Diseases of the digestive system complicating the puerperium (principal); K35.80 Unspecified acute appendicitis; K21.9 Gastro-esophageal reflux disease without esophagitis; O99.53 Diseases of the respiratory system complicating the puerperium; J45.909 Unspecified asthma, uncomplicated; O99.355 Diseases of the nervous system complicating the puerperium; G43.909 Migraine, unspecified, not intractable, without status migrainosus; M54.81 Occipital neuralgia; O90.89 Other complications of the puerperium, not elsewhere classified; R00.2 Palpitations; R01.1 Cardiac murmur, unspecified; R07.9 Chest pain, unspecified; H43.392 Other vitreous opacities, left eye; O99.345 Other mental disorders complicating the puerperium; F41.9 Anxiety disorder, unspecified; K08.89 Other specified disorders of teeth and supporting structures; Z98.890 Other specified postprocedural states; Z87.898 Personal history of other specified conditions; Z79.899 Other long term (current) drug therapy; Z91.040 Latex allergy status; Z88.8 Allergy status to other drugs, medicaments and biological substances; Z82.49 Family history of ischemic heart disease and other diseases of the circulatory system; Z83.49 Family history of other endocrine, nutritional and metabolic diseases
CPT/HCPCS: 44970; 96374; 99285; 81025 ×2; 88304; 80053; 82550; 83690; 83735; 85025 ×2; 81001; 87040; 74177; G0378 ×2; J2543 ×2; J2250; J1200; J1100; J2710; J2405; J2001; J3010; J1170 ×3; J0330; J2704; C9113 ×2; Q9967

== ENCOUNTER 2019-10-08 21:28 | Emergency (ER) | payer OTHER ==
[2019-10-08 21:44] VITALS: RESP 18
[2019-10-08] MEDS ORDERED: ONDANSETRON 4 MG/2 ML VIAL IVP STA (21:59)
[2019-10-08] MEDS ORDERED: SODIUM CHLORIDE 0.9% 1,000 ML IV STA ×2 (21:59)
[2019-10-08] MEDS ORDERED: KETOROLAC 30 MG/ML 1 ML VIAL IVP STA (21:59)
[2019-10-08] MEDS ORDERED: MORPHINE SULFATE 4 MG/ML SYRINGE IV STA (21:59)
--- NOTE | 2019-10-08 22:05 | ED ---
Abdominal Pain HPI - General Chief Complaint: Abdominal Pain Stated Complaint: Abd pain, c section 6 weeks ago/ appendicitis 1 wk Time Seen by Provider: 10/08/19 21:51 Source: patient, RN notes reviewed, old records reviewed Mode of arrival: ambulatory Limitations: no limitations - History of Present Illness Initial Comments: Patient's 28-year-old female, presents emergency Department today with right lower abdominal pain. Patient reports that she had an appendectomy approximately one week ago done by Dr. Enriquez. Patient states that she has also 6 weeks post , after by Dr. Lance. Patient reports that she follow-up with Dr. Lance today, and her incision site has been doing well. She denies any changes in urination or bowel habits. She reports that she has pain with any range of motion on her right leg. She reports the past few days the pain seems similar to her previous appendicitis pain. Patient denies any fevers. - Related Data Home Medications Medication Instructions Recorded Confirmed L.acidoph,Paracasei, B.lactis 1 cap PO DAILY 10/02/19 10/02/19 [Probiotic] Previous Rx's Medication Instructions Recorded Ibuprofen [Motrin] 600 mg PO Q6HR PRN #30 tab 08/29/19 Hydrocodone/Acetaminophen [[place] 1 tab PO Q6HR PRN 3 Days #12 tab 10/02/19 5-325] Allergies Allergy/AdvReac Type Severity Reaction Status Date / Time latex Allergy Rash/Hives Verified 10/08/19 21:44 pseudoephedrine HCl Allergy Anaphylaxis Verified 10/08/19 21:44 [facility] Review of Systems ROS Statement: Those systems with pertinent positive or pertinent negative responses have been documented in the HPI. ROS Other: All systems not noted in ROS Statement are negative. Past Medical History Past Medical History: Asthma, GERD/Reflux Additional Past Medical History / Comment(s): migraines, heart murmur, abdominal pain, seeing neurologist for headaches (occipital nerves are inflammed), sport induced asthma as teenager, recent palpitations & chest pain-upcoming appt. w/card. History of Any Multi-Drug Resistant Organisms: None Reported Past Surgical History: Breast Surgery Additional Past Surgical History / Comment(s): D&C x2, lumpectomy-rt breast, Past Anesthesia/Blood Transfusion Reactions: Motion Sickness, Postoperative Nausea & Vomiting (PONV) Past Psychological History: Anxiety Smoking Status: Never smoker - Past Family History Father Family Medical History: AFIB, Hypertension, Thyroid Disorder Mother Family Medical History: No Reported History General Exam - General Exam Comments Initial Comments: 28-year-old female. Alert and oriented 3. Patient appears in moderate discomfort. Limitations: no limitations General appearance: alert, in no apparent distress Head exam: Present: atraumatic, normocephalic, normal inspection Eye exam: Present: normal appearance, PERRL, EOMI. Absent: scleral icterus, conjunctival injection, periorbital swelling ENT exam: Present: normal exam Neck exam: Present: normal inspection. Absent: tenderness, meningismus, lymphadenopathy Respiratory exam: Present: normal lung sounds bilaterally. Absent: respiratory distress, wheezes, rales, rhonchi, stridor Cardiovascular Exam: Present: regular rate, normal rhythm, normal heart sounds. Absent: systolic murmur, diastolic murmur, rubs, gallop, clicks GI/Abdominal exam: Present: soft, tenderness (RLQ guarding ), normal bowel sounds. Absent: distended, guarding, rebound, rigid Extremities exam: Present: normal inspection, full ROM, normal capillary refill. Absent: tenderness, pedal edema, joint swelling, calf tenderness Back exam: Present: normal inspection Neurological exam: Present: alert, oriented X3, CN II-XII intact Psychiatric exam: Present: normal affect, normal mood Skin exam: Present: warm, dry, intact, normal color. Absent: rash Course Vital Signs 10/08/19 21:40 Temperature 98.0 F Pulse Rate 92 Respiratory 18 Rate Blood Pressure 119/77 O2 Sat by Pulse 98 Oximetry Medical Decision Making - Medical Decision Making 28-year-old female presents emergency Department with a one-week after her appendix removal with complaints of worsening right-sided abdominal pain. No fevers. Vital signs are stable. Laboratory was reviewed and unremarkable. No signs of leukocytosis. Due to patient's tenderness CT of abdomen and pelvis was ordered. No signs of inflammatory changes. There is some minimal free fluid noted but this is pretty similar to previous exam. Discussed the Patient can follow-up with her primary care doctor. - Lab Data Result diagrams: 10/08/19 22:24 10/08/19 22:24 Lab Results 10/08/19 10/08/1910/08/19 Range/Units 22:24 22:24 22:24 WBC 9.1 (3.8-10.6) k/uL RBC 4.67 (3.80-5.40) m/uL Hgb 13.5 (11.4-16.0) gm/dL Hct 39.4 (34.0-46.0) % MCV 84.4 (80.0-100.0) fL MCH 28.9 (25.0-35.0) pg MCHC 34.2 (31.0-37.0) g/dL RDW 12.1 (11.5-15.5) % Plt Count 369 (150-450) k/uL Neutrophils % 58 % Lymphocytes % 30 % Monocytes % 5 % Eosinophils % 5 % Basophils % 1 % Neutrophils # 5.3 (1.3-7.7) k/uL Lymphocytes # 2.7 (1.0-4.8) k/uL Monocytes # 0.4 (0-1.0) k/uL Eosinophils # 0.4 (0-0.7) k/uL Basophils # 0.1 (0-0.2) k/uL PT (9.0-12.0) sec INR (<1.2) APTT (22.0-30.0) sec Sodium 140 (137-145) mmol/L Potassium 3.8 (3.5-5.1) mmol/L Chloride 106 (98-107) mmol/L Carbon Dioxide 25 (22-30) mmol/L Anion Gap 9 mmol/L BUN 11 (7-17) mg/dL Creatinine 0.54 (0.52-1.04) mg/dL Est GFR (CKD-EPI)AfAm >90 (>60 ml/min/1.73 sqM) Est GFR (CKD-EPI)NonAf >90 (>60 ml/min/1.73 sqM) Glucose 93 (74-99) mg/dL Plasma Lactic Acid Danilo 1.3 (0.7-2.0) mmol/L Calcium 9.7 (8.4-10.2) mg/dL Total Bilirubin 0.4 (0.2-1.3) mg/dL AST 23 (14-36) U/L ALT 35 (9-52) U/L Alkaline Phosphatase 83 (38-126) U/L Total Protein 7.1 (6.3-8.2) g/dL Albumin 4.3 (3.5-5.0) g/dL Amylase 54 (30-110) U/L Lipase 61 (23-300) U/L Urine Color Urine Appearance (Clear) Urine pH (5.0-8.0) Ur Specific [place] (1.001-1.035) Urine Protein (Negative) Urine Glucose (UA) (Negative) Urine Ketones (Negative) Urine Blood (Negative) Urine Nitrite (Negative) Urine Bilirubin (Negative) Urine Urobilinogen (<2.0) mg/dL Ur Leukocyte Esterase (Negative) 10/08/19 10/08/19 Range/Units 22:24 22:24 WBC (3.8-10.6) k/uL RBC (3.80-5.40) m/uL Hgb (11.4-16.0) gm/dL Hct (34.0-46.0) % MCV (80.0-100.0) fL MCH (25.0-35.0) pg MCHC (31.0-37.0) g/dL RDW (11.5-15.5) % Plt Count (150-450) k/uL Neutrophils % % Lymphocytes % % Monocytes % % Eosinophils % % Basophils % % Neutrophils # (1.3-7.7) k/uL Lymphocytes # (1.0-4.8) k/uL Monocytes # (0-1.0) k/uL Eosinophils # (0-0.7) k/uL Basophils # (0-0.2) k/uL PT 9.8 (9.0-12.0) sec INR 0.9 (<1.2) APTT 27.4 (22.0-30.0) sec Sodium (137-145) mmol/L Potassium (3.5-5.1) mmol/L Chloride (98-107) mmol/L Carbon Dioxide (22-30) mmol/L Anion Gap mmol/L BUN (7-17) mg/dL Creatinine (0.52-1.04) mg/dL Est GFR (CKD-EPI)AfAm (>60 ml/min/1.73 sqM) Est GFR (CKD-EPI)NonAf (>60 ml/min/1.73 sqM) Glucose (74-99) mg/dL Plasma Lactic Acid Danilo (0.7-2.0) mmol/L Calcium (8.4-10.2) mg/dL Total Bilirubin (0.2-1.3) mg/dL AST (14-36) U/L ALT (9-52) U/L Alkaline Phosphatase (38-126) U/L Total Protein (6.3-8.2) g/dL Albumin (3.5-5.0) g/dL Amylase (30-110) U/L Lipase (23-300) U/L Urine Color Light Yellow Urine Appearance Clear (Clear) Urine pH 6.0 (5.0-8.0) Ur Specific [place] 1.006 (1.001-1.035) Urine Protein Negative (Negative) Urine Glucose (UA) Negative (Negative) Urine Ketones Negative (Negative) Urine Blood Negative (Negative) Urine Nitrite Negative (Negative) Urine Bilirubin Negative (Negative) Urine Urobilinogen <2.0 (<2.0) mg/dL Ur Leukocyte Esterase Negative (Negative) - Radiology Data Radiology results: report reviewed CT of the abdomen and pelvis shows mild free fluid in the pelvis is the same or slightly increased compared to last exam. Some minimal fat stranding in the appendiceal region on all exam is mostly cleared on today's exam. No sign of t hickened appendix. Nonobstructing right renal calculus is noted. Disposition Clinical Impression: Right sided abdominal pain Disposition: HOME SELF-CARE Condition: Good Instructions (If sedation given, give patient instructions): Abdominal Pain (ED) Additional Instructions: Patient has a follow-up with your surgeon. Return to emergency department if a ny alarming signs or symptoms occur. Monitor for fever. Is patient prescribed a controlled substance at d/c from ED?: No Referrals: Sae Morrissey MD [Primary Care Provider] - 1-2 days Time of Disposition: 00:00
[2019-10-08 22:41] LABS: Basophils # (A) 0.1 k/uL (0-0.2); Basophils % (A) 1 %; Eosinophils # (A) 0.4 k/uL (0-0.7); Eosinophils % (A) 5 %; HCT 39.4 % (34.0-46.0); HGB 13.5 gm/dL (11.4-16.0); Lymphocytes # (A) 2.7 k/uL (1.0-4.8); Lymphocytes % (A) 30 %; MCH 28.9 pg (25.0-35.0); MCHC 34.2 g/dL (31.0-37.0); MCV 84.4 fL (80.0-100.0); Mean Platelet Volume 5.4; Monocytes # (A) 0.4 k/uL (0-1.0); Monocytes % (A) 5 %; Neutrophils # (A) 5.3 k/uL (1.3-7.7); Neutrophils % (A) 58 %; Platelet Count 369 k/uL (150-450); RBC 4.67 m/uL (3.80-5.40); RDW 12.1 % (11.5-15.5); WBC 9.1 k/uL (3.8-10.6)
[2019-10-08 22:47] LABS: Appearance,Urine Clear (Clear); Bilirubin,Urine Negative (Negative); Blood,Urine Negative (Negative); Color,Urine Light Yellow; Glucose,Urine (UA) Negative (Negative); Ketones,Urine Negative (Negative); Leukocyte Esterase,Urine Negative (Negative); Nitrite,Urine Negative (Negative); Protein,Urine Negative (Negative); Specific Gravity,Urine 1.006 (1.001-1.035); Urobilinogen,Urine <2.0 mg/dL (<2.0)
[2019-10-08 22:51] LABS: ALT 35 U/L (9-52); AST 23 U/L (14-36); African American GFR (CKD) >90 (>60 ml/min/1.73 sqM); Albumin 4.3 g/dL (3.5-5.0); Alkaline Phosphatase 83 U/L (38-126); Amylase 54 U/L (30-110); Anion Gap 9 mmol/L; Blood Urea Nitrogen 11 mg/dL (7-17); Calcium 9.7 mg/dL (8.4-10.2); Carbon Dioxide 25 mmol/L (22-30); Chloride 106 mmol/L (98-107); Glucose 93 mg/dL (74-99); Non-African American GFR(CKD) >90 (>60 ml/min/1.73 sqM); Potassium 3.8 mmol/L (3.5-5.1); Sodium 140 mmol/L (137-145); Total Bilirubin 0.4 mg/dL (0.2-1.3); Total Protein 7.1 g/dL (6.3-8.2)
[2019-10-08 22:52] LABS: INR 0.9 (<1.2); Partial Thromboplastin Time 27.4 sec (22.0-30.0); Prothrombin Time 9.8 sec (9.0-12.0)
[2019-10-08] MEDS ORDERED: MORPHINE SULFATE 2 MG/ML SYRINGE IVP ONE (23:03)
--- NOTE | 2019-10-08 23:35 | CT ---
EXAMINATION TYPE: CT abdomen pelvis w con DATE OF EXAM: 10/08/2019 COMPARISON: 10/02/2019 HISTORY: Right sided abd pain CT DLP: 825.10 mGycm Automated exposure control for dose reduction was used. CONTRAST: Performed with IV Contrast, patient injected with 100 mL of Isovue 300. Lung bases are clear. There is no pleural effusion. Heart size is normal. Liver spleen pancreas gallbladder appear normal. Bile ducts are not dilated. Stomach appears normal. There is no adrenal mass. Kidneys show satisfactory contrast opacification. There is no hydronephrosi s. There is 5 mm calculus lower pole right kidney. Ureters are not dilated. There is normal distentio n of the urinary bladder. Uterus is anteverted. There is mild free fluid in the cul-de-sac. There is no inguinal hernia. There is no mesenteric edema. There is no ascites or free air. There is no sign of a bowel obstructio n. There is no sign of thickened appendix. Lumbar vertebra have normal spacing and alignment. Posteri or elements are intact. There is no compression fracture. Bony pelvis is intact. IMPRESSION: Mild free fluid in the pelvis is the same or slightly increased compared to last exam. There is some minimal fat stranding in the periappendiceal region on old exam that is mostly cleared on today's exa m. I do not see sign of a thickened appendix. Nonobstructing right renal calculus unchanged.
[2019-10-09] MEDS ORDERED: ACET/COD 300 MG/30 MG STARTER PACK 6 TAB BTL PO STA (00:01)
[2019-10-09 00:16] VITALS: BP 138/88; PULSE 91; TEMP 97.4
== END 2019-10-09 00:22 | disposition home or self-care (01) ==
LOC: EC 21:28
DX: O99.89 Other specified diseases and conditions complicating pregnancy, childbirth and the puerperium (principal); R10.31 Right lower quadrant pain; Z90.49 Acquired absence of other specified parts of digestive tract; Z98.890 Other specified postprocedural states; Z91.040 Latex allergy status; Z88.8 Allergy status to other drugs, medicaments and biological substances
CPT/HCPCS: 36415; 80053; 82150; 83605; 83690; 85025; 85610; 85730; 81003; 87040; 74177; 99285; 96374; 96375 ×2; 96376; 96361 ×2; J2270 ×2; J2405; J1885; Q9967

== ENCOUNTER → 2019-10-19 | Outpatient (CLI) | payer OTHER ==
--- NOTE | 2019-10-19 14:04 | US ---
EXAMINATION TYPE: US kidneys/renal and bladder DATE OF EXAM: 10/19/2019 COMPARISON: NONE CLINICAL HISTORY: Lower Rt Abd Pain, R10.31. EXAM MEASUREMENTS: Right Kidney: 11.5 x 4.2 x 5.0 cm Left Kidney: 11.6 x 4.3 x 4.7 cm Right Kidney: Inferior pole stone measuring 0.4 x 2.0 x 0.4cm, mild hydronephrosis Left Kidney: No hydronephrosis or masses seen Bladder: wnl Left Jet seen, Right not visualized No masses are identified. The urinary bladder is anechoic. Bilateral ureteral jets are not seen. IMPRESSION: 1. Mild right hydronephrosis. 2. Nonobstructing 4 mm inferior pole right renal calculus.
== END | disposition home or self-care (01) ==
LOC: RADUSWWP 11:00
PROVIDERS: ATTEND Physician Assistant Surgical
DX: N13.2 Hydronephrosis with renal and ureteral calculous obstruction (principal)
CPT/HCPCS: 76770

== ENCOUNTER 2020-01-02 16:07 | Emergency (ER) | payer OTHER ==
[2020-01-02] MEDS ORDERED: MORPHINE SULFATE 4 MG/ML SYRINGE IV STA (16:37)
[2020-01-02] MEDS ORDERED: ONDANSETRON 4 MG/2 ML VIAL IVP STA (16:37)
[2020-01-02] MEDS ORDERED: SODIUM CHLORIDE 0.9% 1,000 ML IV STA (16:37)
[2020-01-02 17:05] LABS: Basophils % (A) 0 %; Eosinophils # (A) 0.1 k/uL (0-0.7); Eosinophils % (A) 2 %; HCT 39.7 % (34.0-46.0); HGB 13.7 gm/dL (11.4-16.0); Lymphocytes # (A) 1.8 k/uL (1.0-4.8); Lymphocytes % (A) 25 %; MCH 28.6 pg (25.0-35.0); MCHC 34.6 g/dL (31.0-37.0); MCV 82.7 fL (80.0-100.0); Mean Platelet Volume 6.8; Monocytes # (A) 0.4 k/uL (0-1.0); Monocytes % (A) 6 %; Neutrophils # (A) 4.6 k/uL (1.3-7.7); Neutrophils % (A) 63 %; Platelet Count 316 k/uL (150-450); RDW 12.7 % (11.5-15.5); WBC 7.3 k/uL (3.8-10.6)
[2020-01-02 17:13] LABS: ALT 25 U/L (4-34); AST 28 U/L (14-36); African American GFR (CKD) >90 (>60 ml/min/1.73 sqM); Albumin 4.2 g/dL (3.5-5.0); Alkaline Phosphatase 64 U/L (38-126); Anion Gap 4 mmol/L; Blood Urea Nitrogen 13 mg/dL (7-17); Calcium 9.2 mg/dL (8.4-10.2); Carbon Dioxide 27 mmol/L (22-30); Chloride 106 mmol/L (98-107); Glucose 101 mg/dL (74-99); Non-African American GFR(CKD) >90 (>60 ml/min/1.73 sqM); Sodium 137 mmol/L (137-145); Total Bilirubin 0.3 mg/dL (0.2-1.3); Total Protein 7.1 g/dL (6.3-8.2)
--- NOTE | 2020-01-02 17:21 | XR ---
EXAMINATION TYPE: XR KUB DATE OF EXAM: 01/02/2020 COMPARISON: NONE HISTORY: Abdominal pain TECHNIQUE: 2 views upright FINDINGS: There is no sign of intestinal obstruction or pneumoperitoneum. Fecal pattern is normal. Th ere is no sign of a mass. IMPRESSION: Nonacute abdomen.
[2020-01-02 17:34] LABS: Appearance,Urine Clear (Clear); Bilirubin,Urine Negative (Negative); Blood,Urine Negative (Negative); Color,Urine Light Yellow; Glucose,Urine (UA) Negative (Negative); Ketones,Urine Negative (Negative); Leukocyte Esterase,Urine Negative (Negative); Nitrite,Urine Negative (Negative); PH, Urine 6.5 (5.0-8.0); Protein,Urine Negative (Negative); Specific Gravity,Urine 1.006 (1.001-1.035); Urobilinogen,Urine <2.0 mg/dL (<2.0)
--- NOTE | 2020-01-02 18:00 | ED ---
General Adult HPI - General Chief complaint: Abdominal Pain Stated complaint: Abd pain Time Seen by Provider: 01/02/20 16:30 Source: patient, RN notes reviewed, old records reviewed Mode of arrival: ambulatory Limitations: no limitations - History of Present Illness Initial comments: 29-year-old female patient with past history significant for appendectomy on 10/02 and section approximately 5 weeks before presents to ED for abdominal pain. Patient reports that she has been having abdominal pain ever since the surgery. Reports that she has seen multiple providers for this and believes it may be adhesions. She reports that today she had sharp right adnexal abdominal pain. He has been expressing this ever since the appendectomy. Also denied nausea without emesis. Denies any chance of being due to abstinence. She was recently seen by Dr. Alvarez approximately 2 weeks ago where she had a nonobstructing renal calculi via shockwave lithotripsy. Systemic: Pt denies fatigue, fever/chills, rash. Pt denies weakness, night sweats, weight loss. Neuro: Pt denies headache, visual disturbances, syncope or pre-syncope. HEENT: Pt denies ocular discharge or irritation, otalgia, rhinorrhea, pharyngitis or notable lymphadenopathy. Cardiopulmonary: Pt denies chest pain, SOB, heart palpitations, dyspnea on exertion. Abdominal/GI: Pt denies vomiting and diarrhea. : Pt denies dysuria, burning w/ urination, frequency/urgency. Denies new onset urinary or bowel incontinence. MSK: Pt denies myalgia, loss of strength or function in extremities. Neuro: Pt denies new onset weakness, paresthesias. - Related Data Home Medications Medication Instructions Recorded Confirmed L.acidoph,Paracasei, B.lactis 1 cap PO DAILY 10/02/19 10/02/19 [Probiotic] Previous Rx's Medication Instructions Recorded Ibuprofen [Motrin] 600 mg PO Q6HR PRN #30 tab 08/29/19 Hydrocodone/Acetaminophen [[place] 1 tab PO Q6HR PRN 3 Days #12 tab 10/02/19 5-325] Allergies Allergy/AdvReac Type Severity Reaction Status Date / Time latex Allergy Rash/Hives Verified 01/02/20 16:23 pseudoephedrine HCl Allergy Anaphylaxis Verified 01/02/20 16:23 [From [facility]] Review of Systems ROS Statement: Those systems with pertinent positive or pertinent negative responses have been documented in the HPI. ROS Other: All systems not noted in ROS Statement are negative. Past Medical History Past Medical History: Asthma, GERD/Reflux Additional Past Medical History / Comment(s): migraines, heart murmur, abdominal pain, seeing neurologist for headaches (occipital nerves are inflammed), sport induced asthma as teenager, kidney stones History of Any Multi-Drug Resistant Organisms: None Reported Past Surgical History: Appendectomy, Breast Surgery, Section Additional Past Surgical History / Comment(s): D&C x2, lumpectomy-rt breast, lithotripsy Past Anesthesia/Blood Transfusion Reactions: Motion Sickness, Postoperative Nausea & Vomiting (PONV) Past Psychological History: Anxiety Smoking Status: Never smoker Past Alcohol Use History: None Reported Past Drug Use History: None Reported - Past Family History Father Family Medical History: AFIB, Hypertension, Thyroid Disorder Mother Family Medical History: No Reported History General Exam - General Exam Comments Initial Comments: Constitutional: NAD, AOX3, Pt has pleasant affect. HEENT: NC/AT, trachea midline, neck supple, no lymphadenopathy. Posterior pharynx non erythematous, without exudates. External ears appear normal, without discharge. Mucous membranes moist. Eyes PERRLA, EOM intact. There is no scleral icterus. No pallor noted. Cardiopulmonary: RRR, no murmurs, rubs or gallops, no JVD noted. Lungs CTAB in anterior and posterior díaz. No peripheral edema. Abdominal exam: Abdomen soft and non-distended. Abdomen mildly tender to palpation in the right lower adnexal region. Bowel sounds active in LLQ. No hepatosplenomegaly. No ecchymosis Neuro: CN II-XII grossly intact. No nuchal rigidity. No raccon eyes, no fitzgerald sign, no hemotympanum. No cervical spinal tenderness. MSK: No posterior calf tenderness bilaterally, homans sign negative bilaterally. Posterior tibialis and radial pulse +2 bilaterally. Sensation intact in upper and lower extremities. Full active ROM in upper and lower extremities, 5/5 stregnth. Limitations: no limitations Course Vital Signs 01/02/20 01/02/20 16:20 18:27 Temperature 97.8 F Pulse Rate 121 H 97 Respiratory 20 16 Rate Blood Pressure 145/97 127/83 O2 Sat by Pulse 99 98 Oximetry Medical Decision Making - Medical Decision Making 29-year-old female patient with past history significant for appendectomy on 10/02 and section approximately 5 weeks before presents to ED for abdominal pain. Patient reports that she has been having abdominal pain ever since the surgery. Reports that she has seen multiple providers for this and believes it may be adhesions. She reports that today she had sharp right adnexal abdominal pain. He has been expressing this ever since the appendectomy. Also denied nausea without emesis. Denies any chance of being due to abstinence. She was recently seen by Dr. Alvarez approximately 2 weeks ago where she had a nonobstructing renal calculi via shockwave lithotripsy. Pt VSS, afebrile. Physical exam displayed: Abdomen soft and non- distended. Abdomen mildly tender to palpation in the right lower adnexal region. Bowel sounds active in LLQ. No hepatosplenomegaly. No ecchymosis. Lymph investigations are obtained and are non-impressive. Urine is negative. EKG was obtained by nursing advanced triage, is nonischemic and does not display any concern for acute ischemia. Transvaginal ultrasound did not display any acute process. Patient denies dysuria. Patient denies any concren for STI Patient is not breast-feeding. Patient declined advanced imaging CT. Patient declines pelvic exam. Patient was discharged to follow up with surgeon tomorrow, as well as primary care provider. Will return to ER if condition worsens in any way. Csae discussed with Dr. Espinosa. - Lab Data Result diagrams: 01/02/20 16:54 01/02/20 16:54 Lab Results 01/02/20 01/02/20 01/02/20 Range/Units 16:54 16:54 16:54 WBC 7.3 (3.8-10.6) k/uL RBC 4.80 (3.80-5.40) m/uL Hgb 13.7 (11.4-16.0) gm/dL Hct 39.7 (34.0-46.0) % MCV 82.7 (80.0-100.0) fL MCH 28.6 (25.0-35.0) pg MCHC 34.6 (31.0-37.0) g/dL RDW 12.7 (11.5-15.5) % Plt Count 316 (150-450) k/uL Neutrophils % 63 % Lymphocytes % 25 % Monocytes % 6 % Eosinophils % 2 % Basophils % 0 % Neutrophils # 4.6 (1.3-7.7) k/uL Lymphocytes # 1.8 (1.0-4.8) k/uL Monocytes # 0.4 (0-1.0) k/uL Eosinophils # 0.1 (0-0.7) k/uL Basophils # 0.0 (0-0.2) k/uL Sodium 137 (137-145) mmol/L Potassium 4.0 (3.5-5.1) mmol/L Chloride 106 (98-107) mmol/L Carbon Dioxide 27 (22-30) mmol/L Anion Gap 4 mmol/L BUN 13 (7-17) mg/dL Creatinine 0.44 L (0.52-1.04) mg/dL Est GFR (CKD-EPI)AfAm >90 (>60 ml/min/1.73 sqM) Est GFR (CKD-EPI)NonAf >90 (>60 ml/min/1.73 sqM) Glucose 101 H (74-99) mg/dL Plasma Lactic Acid Danilo 1.0 (0.7-2.0) mmol/L Calcium 9.2 (8.4-10.2) mg/dL Total Bilirubin 0.3 (0.2-1.3) mg/dL AST 28 (14-36) U/L ALT 25 (4-34) U/L Alkaline Phosphatase 64 (38-126) U/L Total Protein 7.1 (6.3-8.2) g/dL Albumin 4.2 (3.5-5.0) g/dL Lipase 116 (23-300) U/L Urine Color Urine Appearance (Clear) Urine pH (5.0-8.0) Ur Specific [employer] [place] (1.001-1.035) Urine Protein (Negative) Urine Glucose (UA) (Negative) Urine Ketones (Negative) Urine Blood (Negative) Urine Nitrite (Negative) Urine Bilirubin (Negative) Urine Urobilinogen (<2.0) mg/dL Ur Leukocyte Esterase (Negative) Urine HCG, Qual (Not Detectd) 01/02/20 01/02/20 Range/Units 17:13 17:13 WBC (3.8-10.6) k/uL RBC (3.80-5.40) m/uL Hgb (11.4-16.0) gm/dL Hct (34.0-46.0) % MCV (80.0-100.0) fL MCH (25.0-35.0) pg MCHC (31.0-37.0) g/dL RDW (11.5-15.5) % Plt Count (150-450) k/uL Neutrophils % % Lymphocytes % % Monocytes % % Eosinophils % % Basophils % % Neutrophils # (1.3-7.7) k/uL Lymphocytes # (1.0-4.8) k/uL Monocytes # (0-1.0) k/uL Eosinophils # (0-0.7) k/uL Basophils # (0-0.2) k/uL Sodium (137-145) mmol/L Potassium (3.5-5.1) mmol/L Chloride (98-107) mmol/L Carbon Dioxide (22-30) mmol/L Anion Gap mmol/L BUN (7-17) mg/dL Creatinine (0.52-1.04) mg/dL Est GFR (CKD-EPI)AfAm (>60 ml/min/1.73 sqM) Est GFR (CKD-EPI)NonAf (>60 ml/min/1.73 sqM) Glucose (74-99) mg/dL Plasma Lactic Acid Danilo (0.7-2.0) mmol/L Calcium (8.4-10.2) mg/dL Total Bilirubin (0.2-1.3) mg/dL AST (14-36) U/L ALT (4-34) U/L Alkaline Phosphatase (38-126) U/L Total Protein (6.3-8.2) g/dL Albumin (3.5-5.0) g/dL Lipase (23-300) U/L Urine Color Light Yellow Urine Appearance Clear (Clear) Urine pH 6.5 (5.0-8.0) Ur Specific [employer] 1.006 (1.001-1.035) Urine Protein Negative (Negative) Urine Glucose (UA) Negative (Negative) Urine Ketones Negative (Negative) Urine Blood Negative (Negative) Urine Nitrite Negative (Negative) Urine Bilirubin Negative (Negative) Urine Urobilinogen <2.0 (<2.0) mg/dL Ur Leukocyte Esterase Negative (Negative) Urine HCG, Qual Not Detected (Not Detectd) - EKG Data -: EKG Interpreted by Me (and Dr Parra ) EKG Comments: Ventricular rate 101, NM interval 138, QRS 82, QT/QTC 352/456. Sinus tachycardia, no concern for acute ischemia. Disposition Clinical Impression: Abdominal pain, Adnexal pain Disposition: HOME SELF-CARE Condition: Stable Instructions (If sedation given, give patient instructions): Abdominal Pain (ED) Additional Instructions: Follow-up with primary care provider and surgeon tomorrow. Return to ER if condition worsens in any way. Is patient prescribed a controlled substance at d/c from ED?: No Referrals: Sae Morrissey MD [Primary Care Provider] - 1-2 days Vamshi Kuo MD [STAFF PHYSICIAN] - 1-2 days
[2020-01-02 18:28] VITALS: RESP 16
--- NOTE | 2020-01-02 18:46 | US ---
EXAMINATION TYPE: US transvaginal DATE OF EXAM: 01/02/2020 COMPARISON: CT, US CLINICAL HISTORY: right adnexal pain. Right adnexal pain since September. August 2019. Appe ndectomy September 2019. Hx miscarriage. D and C x 2. TECHNIQUE: Transvaginal (TV). Date of LMP: 12/19/2019 EXAM MEASUREMENTS: Uterus: 7.9 x 6.8 x 5.0 cm Endometrial Stripe: 2.0 cm Right Ovary: 3.6 x 2.2 x 2.1 cm Left Ovary: 4.2 x 2.5 x 2.8 cm 1. Uterus: Retroverted Anechoic fluid-appearing area in cervix: 3.4 x 0.5 x 0.3 cm. Hypoechoic area in cervix: 0.9 x 0.9 x 0.8 cm. 2. Endometrium: Appears thickened. Clearer image toward end of exam. 3. Right Ovary: Follicles seen 4. Left Ovary: Measures enlarged Spectral, color and waveform doppler imaging show arterial and venous flow within the ovaries. 5. Bilateral Adnexa: Appear wnl 6. Posterior cul-de-sac: Minimal fluid is seen. IMPRESSION: Endometrium is prominent but has normal echogenicity. I see no evidence of endometrial ma ss. No adnexal mass. There is tiny amount of fluid in the cul-de-sac that is probably physiologic. No evidence of ovarian torsion.
[2020-01-02 20:00] VITALS: BP 121/65; PULSE 72; TEMP 98.1
== END 2020-01-02 19:55 | disposition home or self-care (01) ==
LOC: EC 16:07
DX: R10.9 Unspecified abdominal pain (principal); R10.2 Pelvic and perineal pain; J45.909 Unspecified asthma, uncomplicated; Z91.040 Latex allergy status; Z88.8 Allergy status to other drugs, medicaments and biological substances; Z90.89 Acquired absence of other organs
CPT/HCPCS: 36415; 93005; 80053; 83605; 83690; 85025; 81003; 81025; 74018; 93975; 76830; 99285; 96374; 96375; 96361 ×2; J2270; J2405

== ENCOUNTER 2020-07-09 22:53 | Emergency (ER) | payer OTHER ==
[2020-07-09 23:01] VITALS: RESP 16
[2020-07-09] MEDS ORDERED: SODIUM CHLORIDE 0.9% 1,000 ML IV STA (23:13)
--- NOTE | 2020-07-09 23:14 | ED ---
Chest Pain HPI - General Chief Complaint: Chest Pain Stated Complaint: Chest Pain Time Seen by Provider: 07/09/20 23:02 Source: patient, EMS Mode of arrival: EMS Limitations: no limitations - History of Present Illness Initial Comments: Sharri is a previously healthy 29-year-old female who presents the ER today for evaluation of stabbing left-sided chest pain. Patient reports the pain began suddenly while she was watching TV. She reports that the pain was sharp in nature radiating to her left shoulder. She states she got very flushed and hot felt lightheaded. She tried laying down on her couch but didn't feel any better and then began to feel somewhat nauseated at which time the call 911 for transport to the hospital. Patient reports that since giving to her son last August she's been monitoring her blood pressure home and noted that it seems to be elevated at times with blood pressures in the 140s. She saw her primary care office but has not been treated. She reports a family history of A. fib but no coronary artery disease, no sudden cardiac . She has no history or family history of clotting disorder. No recent surgeries or immobilizations. - Related Data Home Medications Medication Instructions Recorded Confirmed L.acidoph,Paracasei, B.lactis 1 cap PO HS 10/02/19 01/02/20 [Probiotic] Multivitamins, Thera [Multivitamin 1 tab PO DAILY 01/02/20 01/02/20 (formulary)] Allergies Allergy/AdvReac Type Severity Reaction Status Date / Time latex Allergy Rash/Hives Verified 07/09/20 23:01 pseudoephedrine HCl Allergy Anaphylaxis Verified 07/09/20 23:01 [From [facility]] Review of Systems ROS Statement: Those systems with pertinent positive or pertinent negative responses have been documented in the HPI. ROS Other: All systems not noted in ROS Statement are negative. EKG Findings - EKG Comments: EKG Findings:: EKG was obtained due to complaint of chest pain, EKG was obtained at 2258, rate is 86 rhythm is sinus normal axis, normal intervals OK 142 QRS 82, QTc [address] elevations or depressions no evidence of acute ischemia or infarction Past Medical History Past Medical History: Asthma, GERD/Reflux Additional Past Medical History / Comment(s): migraines, heart murmur, abdominal pain, seeing neurologist for headaches (occipital nerves are inflammed), sport induced asthma as teenager, kidney stones History of Any Multi-Drug Resistant Organisms: None Reported Past Surgical History: Appendectomy, Breast Surgery, Section Additional Past Surgical History / Comment(s): D&C x2, lumpectomy-rt breast, lithotripsy Past Anesthesia/Blood Transfusion Reactions: Motion Sickness, Postoperative Nausea & Vomiting (PONV) Past Psychological History: Anxiety Smoking Status: Never smoker Past Alcohol Use History: Rare Past Drug Use History: None Reported - Past Family History Father Family Medical History: AFIB, Hypertension, Thyroid Disorder Mother Family Medical History: No Reported History General Exam - General Exam Comments Initial Comments: Physical Exam GENERAL: Patient is well-developed and well-nourished. Patient is nontoxic and well-hydrated Appears upset, is nearly crying on exam HENT: Normocephalic, Atraumatic. EYES: PERRL, EOMI PULMONARY: Unlabored respirations. No audible rales rhonchi or wheezing was noted. CARDIOVASCULAR: There is a regular rate and rhythm without any murmurs gallops or rubs. ABDOMEN: Soft and nontender with normal bowel sounds. SKIN: Skin is clear with no lesions or rashes and otherwise unremarkable. : Deferred NEUROLOGIC: Patient is alert and oriented x3. Moving all extremities spontaneously MUSCULOSKELETAL: Normal extremities with adequate strength and full range of motion. No lower extremity swelling or edema. No calf tenderness. PSYCHIATRIC: Normal psychiatric evaluation. Limitations: no limitations Course Vital Signs 07/09/20 07/10/20 07/10/20 22:56 00:00 00:34 Temperature 98.2 F 98.3 F Pulse Rate 100 68 80 Respiratory 16 16 16 Rate Blood Pressure 132/93 122/72 117/73 O2 Sat by Pulse 99 96 Oximetry Chest Pain MDM - MDM The patient was seen and evaluated history is obtained from the patient Heart score 0 [employer] [place] negative Labs obtained, CBC and CMP with no acute findings, d-dimer and troponin are negative Patient was reevaluated and is chest pain-free. This time patient's comfortable with the plan for discharge home. Disposition Clinical Impression: Atypical chest pain Disposition: HOME SELF-CARE Condition: Stable Is patient prescribed a controlled substance at d/c from ED?: No Referrals: Virgil Gonzalez MD [Primary Care Provider] - 1-2 days
[2020-07-09 23:35] LABS: Basophils % (A) 1 %; Eosinophils # (A) 0.3 k/uL (0-0.7); Eosinophils % (A) 4 %; HCT 37.9 % (34.0-46.0); Lymphocytes # (A) 2.7 k/uL (1.0-4.8); Lymphocytes % (A) 41 %; MCH 30.4 pg (25.0-35.0); MCHC 34.3 g/dL (31.0-37.0); MCV 88.5 fL (80.0-100.0); Mean Platelet Volume 6.8; Monocytes # (A) 0.3 k/uL (0-1.0); Monocytes % (A) 5 %; Neutrophils % (A) 46 %; Platelet Count 254 k/uL (150-450); RBC 4.28 m/uL (3.80-5.40); RDW 11.7 % (11.5-15.5); WBC 6.6 k/uL (3.8-10.6)
[2020-07-09 23:40] LABS: Appearance,Urine Clear (Clear); Bilirubin,Urine Negative (Negative); Blood,Urine Negative (Negative); Color,Urine Colorless; Glucose,Urine (UA) Negative (Negative); Ketones,Urine Negative (Negative); Leukocyte Esterase,Urine Negative (Negative); Nitrite,Urine Negative (Negative); PH, Urine 7.5 (5.0-8.0); Protein,Urine Negative (Negative); Urobilinogen,Urine <2.0 mg/dL (<2.0)
[2020-07-09 23:44] LABS: Albumin 4.1 g/dL (3.5-5.0)
[2020-07-09 23:47] LABS: ALT 12 U/L (4-34); AST 20 U/L (14-36); Alkaline Phosphatase 61 U/L (38-126); Blood Urea Nitrogen 6 mg/dL (7-17); Calcium 9.1 mg/dL (8.4-10.2); Chloride 107 mmol/L (98-107); Glucose 104 mg/dL (74-99); Magnesium 1.9 mg/dL (1.6-2.3); Potassium 3.6 mmol/L (3.5-5.1); Sodium 136 mmol/L (137-145); Total Bilirubin 0.5 mg/dL (0.2-1.3); Total Protein 6.7 g/dL (6.3-8.2)
[2020-07-09 23:48] LABS: African American GFR (CKD) >90 (>60 ml/min/1.73 sqM); Anion Gap 5 mmol/L; Carbon Dioxide 24 mmol/L (22-30); Non-African American GFR(CKD) >90 (>60 ml/min/1.73 sqM)
--- NOTE | 2020-07-09 23:48 | XR ---
EXAMINATION TYPE: XR chest 2V DATE OF EXAM: 07/09/2020 COMPARISON: 12/03/2018 HISTORY: Chest pain TECHNIQUE: 2 views FINDINGS: Heart and mediastinum are normal. Lungs are clear. Diaphragm is normal. Bony thorax appears normal. Pulmonary vascularity is normal. IMPRESSION: Normal chest. No change.
[2020-07-09 23:51] LABS: D-Dimer <0.17 mg/L FEU (<0.60); Partial Thromboplastin Time 25.8 sec (22.0-30.0); Prothrombin Time 10.7 sec (9.0-12.0)
[2020-07-10 00:38] VITALS: BP 117/73; PULSE 80; TEMP 98.3
== END 2020-07-10 01:00 | disposition home or self-care (01) ==
LOC: EC 22:53
DX: R07.89 Other chest pain (principal); R23.2 Flushing; R42 Dizziness and giddiness; R11.0 Nausea; Z91.040 Latex allergy status; Z88.8 Allergy status to other drugs, medicaments and biological substances
CPT/HCPCS: 36415; 71046; 80053; 81003; 83735; 84484; 85025; 85379; 85610; 85730; 93005; 96360; 99285

== ENCOUNTER → 2020-12-30 | Outpatient (CLI) | payer OTHER | LOC: LABWHC1 10:49 | PROVIDERS: ATTEND Family Medicine | DX: Z53.9 Procedure and treatment not carried out, unspecified reason (principal) ==

== ENCOUNTER 2021-03-05 14:35 | Emergency (ER) | payer OTHER ==
[2021-03-05 14:39] VITALS: TEMP 97.5
--- NOTE | 2021-03-05 15:36 | XR ---
EXAMINATION TYPE: XR chest 1V portable DATE OF EXAM: 03/05/2021 COMPARISON: 07/09/2020 HISTORY: Pain TECHNIQUE: Single frontal view of the chest is obtained. FINDINGS: There is no focal air space opacity, pleural effusion, or pneumothorax seen. The cardiac silhouette size is within normal limits. The osseous structures are intact. IMPRESSION: No acute process.
[2021-03-05 15:53] LABS: Basophils % (A) 1 %; Eosinophils % (A) 1 %; HCT 43.9 % (34.0-46.0); HGB 15.4 gm/dL (11.4-16.0); Lymphocytes # (A) 1.3 k/uL (1.0-4.8); Lymphocytes % (A) 42 %; MCH 31.3 pg (25.0-35.0); MCHC 35.1 g/dL (31.0-37.0); MCV 89.2 fL (80.0-100.0); Mean Platelet Volume 7.5; Monocytes # (A) 0.3 k/uL (0-1.0); Monocytes % (A) 10 %; Neutrophils # (A) 1.3 k/uL (1.3-7.7); Neutrophils % (A) 42 %; Platelet Count 190 k/uL (150-450); RBC 4.92 m/uL (3.80-5.40); RDW 11.2 % (11.5-15.5); WBC 3.2 k/uL (3.8-10.6)
[2021-03-05 16:04] LABS: Partial Thromboplastin Time 26.7 sec (22.0-30.0); Prothrombin Time 10.3 sec (9.0-12.0)
[2021-03-05 16:10] LABS: ALT 17 U/L (4-34); AST 33 U/L (14-36); African American GFR (CKD) >90 (>60 ml/min/1.73 sqM); Albumin 4.5 g/dL (3.5-5.0); Alkaline Phosphatase 66 U/L (38-126); Anion Gap 8 mmol/L; Blood Urea Nitrogen 7 mg/dL (7-17); Carbon Dioxide 28 mmol/L (22-30); Chloride 103 mmol/L (98-107); Glucose 84 mg/dL (74-99); Lipase 120 U/L (23-300); Magnesium 2.1 mg/dL (1.6-2.3); Non-African American GFR(CKD) >90 (>60 ml/min/1.73 sqM); Potassium 3.9 mmol/L (3.5-5.1); Sodium 139 mmol/L (137-145); Total Bilirubin 0.4 mg/dL (0.2-1.3); Total Protein 7.5 g/dL (6.3-8.2)
--- NOTE | 2021-03-05 16:29 | ED ---
Chest Pain HPI - General Chief Complaint: Chest Pain Stated Complaint: covid+/abd pain Time Seen by Provider: 03/05/21 14:35 Source: patient Mode of arrival: ambulatory Limitations: no limitations - History of Present Illness Initial Comments: 30-year-old female who presents to the emergency department with reported left upper quadrant abdominal pain and pleuritic chest pain. She reports that the symptoms have been present since yesterday. She has had Covid symptoms with generalized fatigue and nausea since Tuesday. Received a Covid swab on Tuesday gotten results yesterday that she was positive. She discussed the results with her primary care doctor and told him that she was having chest pain and therefore she was sent into the emergency department for evaluation. Denies history of PE or DVT. No lower extremity swelling. Denies any fevers. No shortness of breath. No family history or personal history of heart disease. Denies vomiting. No alleviating, precipitating or modifying factors - Related Data Home Medications Medication Instructions Recorded Confirmed L.acidoph,Paracasei, B.lactis 1 cap PO DAILY 10/02/19 03/05/21 [Probiotic] Multivitamins, Thera [Multivitamin 1 tab PO DAILY 01/02/20 03/05/21 (formulary)] Ascorbic Acid [Vitamin C] 1,000 mg PO DAILY 03/05/21 03/05/21 Cholecalciferol (Vitamin D3) 125 mcg PO DAILY 03/05/21 03/05/21 [Vitamin D3 (5000 Iu)] Ivermectin 13.5 mg PO W/SUPPER 03/05/21 03/05/21 Magnesium 250 mg PO HS 03/05/21 03/05/21 Quercetin 250 mg PO BID 03/05/21 03/05/21 Sertraline [Zoloft] 50 mg PO W/SUPPER 03/05/21 03/05/21 Vitamin K2 100 mcg PO DAILY 03/05/21 03/05/21 Zinc Gluconate [Zinc] 100 mg PO DAILY 03/05/21 03/05/21 Allergies Allergy/AdvReac Type Severity Reaction Status Date / Time latex Allergy Rash/Hives Verified 03/05/21 16:14 pseudoephedrine HCl Allergy Anaphylaxis Verified 03/05/21 16:14 [facility] Review of Systems ROS Statement: Those systems with pertinent positive or pertinent negative responses have been documented in the HPI. ROS Other: All systems not noted in ROS Statement are negative. EKG Findings - EKG Comments: EKG Findings:: EKG demonstrates normal sinus rhythm with ventricular rate of 79. NC interval is 146. QRS 80. QTC of 435. No acute ST segment elevations or depressions. Past Medical History Past Medical History: Asthma, GERD/Reflux Additional Past Medical History / Comment(s): migraines, heart murmur, abdominal pain, seeing neurologist for headaches (occipital nerves are inflammed), sport induced asthma as teenager, kidney stones History of Any Multi-Drug Resistant Organisms: None Reported Past Surgical History: Appendectomy, Breast Surgery, Section Additional Past Surgical History / Comment(s): D&C x2, lumpectomy-rt breast, lithotripsy Past Anesthesia/Blood Transfusion Reactions: Motion Sickness, Postoperative Nausea & Vomiting (PONV) Past Psychological History: Anxiety Smoking Status: Never smoker Past Alcohol Use History: Rare Past Drug Use History: None Reported - Past Family History Father Family Medical History: AFIB, Hypertension, Thyroid Disorder Mother Family Medical History: No Reported History General Exam Limitations: no limitations General appearance: alert, in no apparent distress Head exam: Present: atraumatic, normocephalic, normal inspection Eye exam: Present: normal appearance, PERRL, EOMI. Absent: scleral icterus, conjunctival injection, periorbital swelling ENT exam: Present: normal exam, mucous membranes moist Neck exam: Present: normal inspection. Absent: tenderness, meningismus, lymphadenopathy Respiratory exam: Present: normal lung sounds bilaterally. Absent: respiratory distress, wheezes, rales, rhonchi, stridor Cardiovascular Exam: Present: regular rate, normal rhythm, normal heart sounds. Absent: systolic murmur, diastolic murmur, rubs, gallop, clicks GI/Abdominal exam: Present: soft, tenderness (LUQ), normal bowel sounds. Absent: distended, guarding, rebound, rigid Extremities exam: Present: normal inspection, full ROM, normal capillary refill. Absent: tenderness, pedal edema, joint swelling, calf tenderness Back exam: Present: normal inspection Neurological exam: Present: alert, oriented X3, CN II-XII intact Psychiatric exam: Present: normal affect, normal mood Skin exam: Present: warm, dry, intact, normal color. Absent: rash Course Vital Signs 03/05/21 03/05/21 14:36 18:28 Temperature 97.5 F L Pulse Rate 86 76 Respiratory 16 18 Rate Blood Pressure 145/103 120/83 O2 Sat by Pulse 99 98 Oximetry Chest Pain MDM - MDM Upon arrival the patient is placed in room 12. Thorough history and physical exam was performed. Laboratory studies were conducted and the patient went for chest x-ray. Laboratory studies are remarkable for d-dimer less than 0.17. Troponin is negative. Chest x-ray demonstrates no acute process. Patient is reevaluated and remains pain-free at this time. Discuss results with the patient. Patient will be discharged home with a Zofran starter pack because of her nausea. Recommend that she get a pulse ox. Return to the emergency room for any readings less than 90%. She denies concern for . At this time it is recommended that the patient take Motrin for pleuritic chest pain. Follow-up with her primary care doctor for days. Return to the emergency room for any new or worsening symptoms per patient was discharged home in stable condition Disposition Clinical Impression: Chest pain, COVID-19 Disposition: HOME SELF-CARE Condition: Stable Instructions (If sedation given, give patient instructions): Pleurisy (ED) Additional Instructions: Please follow up with your PCP in 2-4 days. Take Motrin 400 mg every 6-8 hours for pain. Check your pulse ox, return if it drops below 90%. Return to the ED for any new or worsening symptoms. Is patient prescribed a controlled substance at d/c from ED?: No Referrals: Paulette Salcedo III, MD [Primary Care Provider] - 1-2 days Time of Disposition: 17:50
[2021-03-05] MEDS ORDERED: ONDANSETRON 4 MG ODT STARTER PACK 2 TAB BTL PO STA (17:49)
[2021-03-05 18:29] VITALS: BP 120/83; PULSE 76; RESP 18
== END 2021-03-05 18:31 | disposition home or self-care (01) ==
LOC: EC 14:35
DX: U07.1 COVID-19 (principal); J45.909 Unspecified asthma, uncomplicated; Z90.49 Acquired absence of other specified parts of digestive tract
CPT/HCPCS: 36415; 93005; 85379; 80053; 83690; 83735; 84484; 85025; 85610; 85730; 71045; 99285; S0119

== ENCOUNTER → 2021-09-30 | Outpatient (CLI) | payer OTHER ==
--- NOTE | 2021-09-30 20:37 | CONS ---
CONSULTATION DATE OF SERVICE: 09/30/2021 This 30-year-old lady has been evaluated in Sleep Center for sleepiness and possible obstructive sleep apnea-hypopnea syndrome. HISTORY OF PRESENT ILLNESS/SLEEP-WAKE EVALUATION: Patient's usual sleep schedule is from 10 or 11 p.m. until 6 or 7 a.m. No problems with falling asleep. No TV in bedroom. She may experience some restless leg symptoms during the day and also at the time when she is going to bed. During the night, according to her, she does not snore. She wakes up from sleep several times with episodes of grinding teeth and palpitations. In the morning she wakes up tired and has problems with memory. [place] Sleepiness Scale is 9. She may feel tiredness and sleepiness during the day. No history of hypnagogic hallucinations, sleep paralysis or cataplexy. PAST MEDICAL HISTORY: Positive for hypertension, hypothyroidism, anxiety, episodes of chest pain, COVID-19 in February 2021. PAST SURGICAL HISTORY: Appendectomy, . CURRENT MEDICATIONS: 1. Diltiazem 30 mg 3 times a day. 2. Levothyroxine 50 mg once a day. 3. Zoloft 25 mg once a day. FAMILY HISTORY: Arthritis, cancer, hyperlipidemia and diabetes. REVIEW OF SYSTEMS: Awakenings from sleep, episodes of sleepiness during the day. No fevers. No double vision. No recent chest pain. No shortness of breath. No abdominal pain. No bleeding episodes. No blood in the urine. No seizure episodes. PHYSICAL EXAMINATION: GENERAL: Pleasant lady without distress. VITAL SIGNS: BP 119/80, HR 89, RR 14, height 5 feet 7-3/4 inches, weight 145.4 pounds, body mass index 22.2, temperature 97.7, oxygen saturation at room air 97%. HEENT: PERRLA, EOMI, evaluation of oropharynx showed tongue protrudes midline. Retrognathia 3 mm. Extremely low position of soft palate; Mallampati IV. NECK: Supple, no JVD. Thyroid is not palpable. Neck measures 12 inches in circumference. LUNGS: Clear to percussion and to auscultation. Good air exchange. No wheezing or rhonchi. HEART: S1, S2 regular. No murmurs, gallops, or rubs. ABDOMEN: Soft and nontender. Bowel sounds are present. No organomegaly appreciated. EXTREMITIES: No clubbing or cyanosis. PERINATAL COORDINATOR: Awake, alert, and oriented X3. Cranial nerves 2 to 7 intact. There is no fasciculation or atrophy. noted. No focal deficits observed. IMPRESSION: 1. Awakenings from sleep, retrognathia 3 mm, extremely low position of soft palate, Mallampati IV; possible obstructive sleep apnea-hypopnea syndrome. 2. Tiredness and sleepiness during the day. 3. History of episodes of palpitations. 4. Hypertension. 5. History of restless leg symptoms. 6. History of Jose E's thyroiditis, hypothyroidism, on thyroid supplement. 7. History of anxiety. 8. Status post COVID-19 in February of 2021. 9. Episodes of chest pain. 10.Status post . 11.Status post appendectomy. PLAN: 1. Polysomnography for evaluation of patient's breathing during sleep with following multiple sleep latency test if the sleep study is negative for obstructive sleep apnea-hypopnea syndrome. We will also to check for possible periodic limb movements during the sleep. 2. CPAP/BiPAP titration if sleep study confirms obstructive sleep apnea-hypopnea syndrome. 3. Preferable position during sleep on the side. 4. No driving if patient feels any sleepiness. 5. I will see patient for follow up visit to explain results of testing and following plan. Thank you very much for referring this patient for consultation. Sincerely, Sergio Bradford MD, PhD, FAASM Diplomat of [employer] Sleep Medicine Board of [employer] Adjunct Psychology Instructor of [facility] [place] MMODL / IJN: [id number] /
== END ==
LOC: SLEEP 14:15
PROVIDERS: ATTEND Internal Medicine
DX: G47.10 Hypersomnia, unspecified (principal); I10 Essential (primary) hypertension; F41.9 Anxiety disorder, unspecified; Z86.16 Personal history of COVID-19; Z87.59 Personal history of other complications of pregnancy, childbirth and the puerperium; Z90.49 Acquired absence of other specified parts of digestive tract; Z86.79 Personal history of other diseases of the circulatory system; E03.9 Hypothyroidism, unspecified; Z86.39 Personal history of other endocrine, nutritional and metabolic disease; R07.9 Chest pain, unspecified; Z79.890 Hormone replacement therapy; Z87.898 Personal history of other specified conditions; Z91.040 Latex allergy status; Z88.5 Allergy status to narcotic agent
CPT/HCPCS: 99211

== ENCOUNTER → 2021-11-18 | Outpatient (CLI) | payer OTHER ==
--- NOTE | 2021-11-19 06:48 | SFUN ---
SLEEP CENTER FOLLOW UP NOTE DATE OF SERVICE: 11/18/2021 30-year-old lady has been followed in Sleep Center to discuss results of the sleep studies and following plan. I discussed results of polysomnogram and multiple sleep latency test in detail. Polysomnogram did not show any abnormalities of respiration. Totally normal breathing for the whole night, no oxygen desaturation. Lowest oxygen level 92.9%. During multiple sleep latency test, the patient fell asleep on 3 naps, did not fall asleep on 2 naps and mean sleep latency was not short at all. Mean sleep latency 16.5 minutes, which is totally normal. No sleep onset REM periods have been documented. No periodic limb movements during the sleep study documented at night. Normal sleep efficiency. Sleep architecture showed high range of delta sleep and normal amount of REM sleep. MEDICATIONS: Diltiazem, levothyroxine, Zoloft. PHYSICAL EXAMINATION: GENERAL: Patient in no distress, BP 124/75, HR 95, RR 16, weight 146.2, temperature 97.6, oxygen saturation at room air 98%. Oropharynx: Retrognathia 3 mm, low position of soft palate. NECK: Supple, no JVD. Thyroid is not palpable. LUNGS: Clear to percussion and to auscultation. Good air exchange. No wheezing or rhonchi. HEART: S1, S2 regular. No murmurs, gallops, or rubs. ABDOMEN: Soft and nontender. Bowel sounds are present. No organomegaly appreciated. EXTREMITIES: No clubbing or cyanosis. COUNTER TOP MAKER: Awake, alert, and oriented X3. Cranial nerves 2 to 7 intact. There is no fasciculation or atrophy. noted. No focal deficits observed. IMPRESSION: 1. No significant respiratory abnormalities during the sleep study. 2. No periodic limb movements during the sleep test. 3. Normal sleep latency on multiple sleep latency test. 4. Hypertension. 5. History of Jose E thyroiditis, hypothyroidism on thyroid supplement. 6. History of anxiety. 7. Status post COVID-19 in February 2021. 8. Status post . 9. Status post appendectomy. PLAN: 1. Sleep hygiene with time in bed 7-1/2 to 8 hours. 2. Precautions related to driving. No driving if feeling sleepiness. 3. Preferable position during the sleep on the side. Thank you very much for allowing me to participate in management of your patient. Sincerely, Sergio Bradford MD, PhD, FAASM Diplomat of [employer] Sleep Medicine Board of [employer] K 9 Police Officer of [facility] [place] MARIN / KATHY: [id number] /
== END ==
LOC: SLEEP 15:03
PROVIDERS: ATTEND Internal Medicine
DX: G47.8 Other sleep disorders (principal); I10 Essential (primary) hypertension; E03.9 Hypothyroidism, unspecified; F41.9 Anxiety disorder, unspecified; Z87.59 Personal history of other complications of pregnancy, childbirth and the puerperium; Z90.49 Acquired absence of other specified parts of digestive tract; Z86.39 Personal history of other endocrine, nutritional and metabolic disease; Z86.16 Personal history of COVID-19; Z91.040 Latex allergy status; Z88.5 Allergy status to narcotic agent

== ENCOUNTER 2024-03-07 13:50 | Emergency (ER) | payer OTHER ==
[2024-03-07 14:18] VITALS: RESP 18; TEMP 98.4
--- NOTE | 2024-03-07 15:09 | ED ---
Chest Pain HPI - General Chief Complaint: Chest Pain Stated Complaint: Syncope Time Seen by Provider: 03/07/24 15:07 Source: patient, RN notes reviewed, old records reviewed Mode of arrival: EMS Limitations: no limitations - History of Present Illness Initial Comments: This is a 33-year-old female. Well for a few days. Patient has chest pain today and multiple visits for recurrent syncope. Chest pain shoulder pain and back pain prior to arrival. No other illnesses no fevers no prior history of syncope. MD Complaint: chest pain -: minutes(s) Onset: during rest Pain Location: substernal, left chest Pain Radiation: LUE Severity: mild Severity scale (1-10): 3 Quality: tightness, aching Consistency: constant Improves With: nothing Worsens With: nothing Context: recent illness Anginal Symptoms: nausea Other Symptoms: cough Treatments Prior to Arrival: none - Related Data Home Medications Medication Instructions Recorded Confirmed Sertraline [Zoloft] 50 mg PO W/SUPPER 03/05/21 03/07/24 Diltiazem Oral [Cardizem Oral] 30 mg PO QID 03/07/24 03/07/24 Levothyroxine Sodium [Synthroid] 75 mcg PO [id number] 03/07/24 03/07/24 Allergies Allergy/AdvReac Type Severity Reaction Status Date / Time latex Allergy Rash/Hives Verified 03/07/24 15:21 pseudoephedrine HCl Allergy Anaphylaxis Verified 03/07/24 15:21 [From [facility]] Review of Systems ROS Statement: Those systems with pertinent positive or pertinent negative responses have been documented in the HPI. ROS Other: All systems not noted in ROS Statement are negative. EKG Findings - EKG Comments: EKG Findings:: EKG is sinus 85 UT 153 QRS 86 QTc 400 - EKG Results: EKG: interpreted by ERMD Past Medical History Past Medical History: Asthma, GERD/Reflux Additional Past Medical History / Comment(s): migraines, heart murmur, abdominal pain, seeing neurologist for headaches (occipital nerves are inflammed), sport induced asthma as teenager, kidney stones History of Any Multi-Drug Resistant Organisms: None Reported Past Surgical History: Appendectomy, Breast Surgery, Section Additional Past Surgical History / Comment(s): D&C x2, lumpectomy-rt breast, lithotripsy Past Anesthesia/Blood Transfusion Reactions: Motion Sickness, Postoperative Nausea & Vomiting (PONV) Past Psychological History: Anxiety Smoking Status: Never smoker Past Alcohol Use History: Rare Past Drug Use History: None Reported - Past Family History Father Family Medical History: AFIB, Hypertension, Thyroid Disorder Mother Family Medical History: No Reported History General Exam Limitations: no limitations General appearance: alert, in no apparent distress Head exam: Present: atraumatic, normocephalic, normal inspection Eye exam: Present: normal appearance, PERRL, EOMI. Absent: scleral icterus, conjunctival injection, periorbital swelling ENT exam: Present: normal exam, mucous membranes moist Neck exam: Present: normal inspection. Absent: tenderness, meningismus, lymphadenopathy Respiratory exam: Present: normal lung sounds bilaterally. Absent: respiratory distress, wheezes, rales, rhonchi, stridor Cardiovascular Exam: Present: regular rate, normal rhythm, normal heart sounds. Absent: systolic murmur, diastolic murmur, rubs, gallop, clicks GI/Abdominal exam: Present: soft, normal bowel sounds. Absent: distended, tenderness, guarding, rebound, rigid Extremities exam: Present: normal inspection, full ROM, normal capillary refill. Absent: tenderness, pedal edema, joint swelling, calf tenderness Back exam: Present: normal inspection Neurological exam: Present: alert, oriented X3, CN II-XII intact Psychiatric exam: Present: normal affect, normal mood Skin exam: Present: warm, dry, intact, normal color. Absent: rash Course Vital Signs 03/07/24 03/07/24 03/07/24 13:52 14:55 15:50 Temperature 98.4 F Pulse Rate 87 87 86 Respiratory 18 18 18 Rate Blood Pressure 143/93 125/88 124/74 O2 Sat by Pulse 100 96 99 Oximetry - Reevaluation(s) Reevaluation #1: Medical records reviewed Reevaluation #2: Patient symptoms are improved no recurrent syncope Reevaluation #3: Patient informed of results questions answered Studies chest x-ray is negative for acute disease Reevaluation #4: Was pt. sent in by a medical professional or institution (, PA, STRADDLE BUG OPERATOR, urgent care, hospital, or [place] health [place] facility...) When possible be specific @ -no Did you speak to anyone other than the patient for history (EMS, parent, family, police, friend...)? What history was obtained from this source @ -no Did you review nursing and triage notes (agree or disagree)? Why? @ -agree Are old charts reviewed (outside hosp., previous admission, EMS record, old EKG, old radiological studies, urgent care reports/EKG's, [place] health care facility records)? Report findings @ -yes Differential Diagnosis (chest pain, altered mental status, abdominal pain women, abdominal pain men, vaginal bleeding, weakness, fever, dyspnea, syncope, headache, dizziness, GI bleed, back pain, seizure, CVA, palpatations, mental health, musculoskeletal)? @ -prior EKG interpreted by me (3pts min.). @ -yes X-rays interpreted by me (1pt min.). @ -yes negative for acute disease CT interpreted by me (1pt min.). @ -no U/S interpreted by me (1pt. min.). @ -no What testing was considered but not performed or refused? (CT, X-rays, U/S, labs)? Why? @ -none What meds were considered but not given or refused? Why? @ -none Did you discuss the management of the patient with other professionals (cortney dooley i.eRufino Taylor, PA, STRADDLE BUG OPERATOR, lab, RT, psych nurse, social science manager, electronic sensing equipment assembler, teacher, bsa/aml compliance officer, therapeutic case manager)? Give summary @ -no Was smoking cessation discussed for >3mins.? @ -no Was critical care preformed (if so, how long)? @ -no Were there social determinants of health that impacted care today? How? (Homelessness, low income, unemployed, alcoholism, drug addiction, transportation, low edu. Level, literacy, decrease access to med. care, alf, rehab)? @ -none Was there de-escalation of care discussed even if they declined (Discuss DNR or withdrawal of care, Hospice)? DNR status @ -no What co-morbidities impacted this encounter? (DM, HTN, Smoking, COPD, CAD, Cancer, CVA, ARF, Chemo, Hep., AIDS, mental health diagnosis, sleep apnea, morbid obesity)? @ -none Was patient admitted / discharged? Hospital course, mention meds given and route, prescriptions, significant lab abnormalities, going to OR and other pertinent info. @ - 33 female to the ER for evaluation of a syncopal event no acute cause of syncope found in the ER patient feels well can be discharged home Discharge Undiagnosed new problem with uncertain prognosis? @ -no Drug Therapy requiring intensive monitoring for toxicity (Heparin, Nitro, Insulin, Cardizem)? @ -no Were any procedures done? @ -no Diagnosis/symptom? @ -Syncope Acute, or Chronic, or Acute on Chronic? @ -Acute Uncomplicated (without systemic symptoms) or Complicated (systemic symptoms)? @ -Complicated Side effects of treatment? @ -no Exacerbation, Progression, or Severe Exacerbation? @ -exacerbation Poses a threat to life or bodily function? How? (Chest pain, [place], [place], pneumonia, PE, COPD, DKA, ARF, appy, cholecystitis, CVA, Diverticulitis, Homicidal, Suicidal, threat to staff... and all critical care pts) @ -yes with cause of syncope Reevaluation #5: Differential Syncope: Valvular disease, hypertrophic cardiomyopathy, pulmonary embolism, tamponade, tachycardia, bradycardia, [place], hypovolemia, hemorrhage, dissection, anemia, intracranial hemorrhage, seizure, hypoglycemia, carbon monoxide poisoning, this is not meant to be an all-inclusive list. Chest Pain MDM - MDM 33 female to the ER for evaluation of a syncopal event no acute cause of syncope found in the ER patient feels well can be discharged home Disposition Clinical Impression: Atypical chest pain, Chest pain Disposition: HOME SELF-CARE Condition: Fair Instructions (If sedation given, give patient instructions): Chest Pain (ED) Is patient prescribed a controlled substance at d/c from ED?: No Referrals: None,Stated [Primary Care Provider] - 1-2 days Time of Disposition: 17:40
[2024-03-07 15:32] LABS: Basophils # (A) 0.1 k/uL (0-0.2); Basophils % (A) 1 %; Eosinophils % (A) 0 %; HCT 46.5 % (34.0-46.0); HGB 16.2 gm/dL (11.4-16.0); Lymphocytes # (A) 1.4 k/uL (1.0-4.8); Lymphocytes % (A) 16 %; MCH 31.2 pg (25.0-35.0); MCHC 34.8 g/dL (31.0-37.0); MCV 89.8 fL (80.0-100.0); Mean Platelet Volume 7.3; Monocytes # (A) 0.5 k/uL (0-1.0); Monocytes % (A) 6 %; Neutrophils # (A) 6.5 k/uL (1.3-7.7); Neutrophils % (A) 75 %; Platelet Count 258 k/uL (150-450); RBC 5.18 m/uL (3.80-5.40); RDW 11.3 % (11.5-15.5); WBC 8.7 k/uL (3.8-10.6)
[2024-03-07 15:58] LABS: ALT 17 U/L (4-34); AST 23 U/L (14-36); African American GFR (CKD) >90 (>60 ml/min/1.73 sqM); Albumin 4.7 g/dL (3.5-5.0); Alkaline Phosphatase 69 U/L (38-126); Anion Gap 8 mmol/L; Blood Urea Nitrogen 15 mg/dL (7-17); Calcium 9.3 mg/dL (8.4-10.2); Carbon Dioxide 23 mmol/L (22-30); Chloride 109 mmol/L (98-107); Glucose 90 mg/dL (74-99); Lipase 119 U/L (23-300); Magnesium 2.3 mg/dL (1.6-2.3); Non-African American GFR(CKD) >90 (>60 ml/min/1.73 sqM); Potassium 3.9 mmol/L (3.5-5.1); Sodium 140 mmol/L (137-145); Total Bilirubin 0.7 mg/dL (0.2-1.3); Total Protein 7.9 g/dL (6.3-8.2)
[2024-03-07 15:59] LABS: Partial Thromboplastin Time 27.1 sec (22.0-30.0); Prothrombin Time 11.1 sec (10.0-12.5)
[2024-03-07 16:05] LABS: NT-Pro-B-Type Natriuretic Pept 23 pg/mL
[2024-03-07 16:06] VITALS: BP 124/74; PULSE 86
--- NOTE | 2024-03-07 16:31 | XR ---
EXAMINATION TYPE: XR chest 2V DATE OF EXAM: 03/07/2024 COMPARISON: 03/05/2021 INDICATION: Chest pain TECHNIQUE: Frontal and lateral views of the chest are obtained. FINDINGS: The heart size is normal. The pulmonary vasculature is normal. The lungs are clear. IMPRESSION: 1. No acute pulmonary process.
== END 2024-03-07 19:05 | disposition home or self-care (01) ==
LOC: EC 13:50
DX: R07.89 Other chest pain (principal); R55 Syncope and collapse; Z91.040 Latex allergy status; Z88.8 Allergy status to other drugs, medicaments and biological substances
CPT/HCPCS: 36415; 71046; 80053; 83690; 83735; 83880; 84484; 85025; 85379; 85610; 85730; 93005; 99285

== ENCOUNTER 2024-05-31 06:02 | Day surgery (SDC) | payer OTHER ==
[2024-05-31] MEDS: SODIUM CHLORIDE 0.9% 1,000 ML IV SCH (06:41)
[2024-05-31 06:49] VITALS: RESP 16; TEMP 98.4
[2024-05-31] MEDS: IV FLUID CONTINUATION 500 ML IV ONE (07:36)
[2024-05-31] MEDS: IV FLUID CONTINUATION 1,000 ML IV ONE (08:46)
[2024-05-31 08:55] VITALS: BP 130/83; PULSE 98
--- NOTE | 2024-05-31 18:28 | P.EPPROC ---
- EP Procedure Note Electrophysiology Procedure Note: Diagnosis Syncope Twelve-lead EKG shows sinus mechanism supine heart rate 80 beats minute normal FL narrow QRS normal ST segments normal QT interval Tilt table test per protocol Baseline blood pressure 124/74 mmHg, baseline heart rate 90 beats a minute Patient was tilted upright at an angle of 70 degrees per protocol. There was an immediate increase in her heart rate 130 bpm which increased to about 148 beats a minute within 10 minutes She remained around 140-150 beats a minute throughout the test. She had a variety of symptoms including feeling flushed lightheaded sweaty and a feeling that she was going to pass out. She had blurred vision chest pain and nausea and very weak Her heart rate remained in the 140s while her blood pressure was normal When she was laid supine at the end of the procedure her heart rate came down to 84 beats a minute Impression Normal twelve-lead EKG Postural tachycardia, symptomatic No secondary neurocardiogenic phenomena noted
== END 2024-05-31 09:56 | disposition home or self-care (01) ==
LOC: CATHEP 06:02
PROVIDERS: ATTEND Internal Medicine Clinical Cardiac Electrophysiology
DX: R55 Syncope and collapse (principal); I10 Essential (primary) hypertension; E07.9 Disorder of thyroid, unspecified; I47.20 Ventricular tachycardia, unspecified; Z79.899 Other long term (current) drug therapy; Z88.8 Allergy status to other drugs, medicaments and biological substances
CPT/HCPCS: 81025; 93660

== ENCOUNTER → 2024-11-13 | Outpatient (CLI) | payer BC, OTHER ==
--- NOTE | 2024-11-13 10:42 | US ---
EXAMINATION TYPE: US pelvic complete DATE OF EXAM: 11/13/2024 COMPARISON: US 2019 CLINICAL INDICATION: Female, 33 years old with history of vaginal bleeding N93.9; pelvic pain R10.2; Vaginal bleeding per order, no vaginal bleeding per patient. Hx cramping x 2 months. Hx 1 C section. 1 miscarriage. . TECHNIQUE: Transabdominal (TA). Transabdominal grayscale sonographic images of the pelvis were acquired. Transvaginal sonographic im ages were not performed due to patient not wanting transvaginal exam. Doppler imaging: Not performed. FINDINGS: Date of LMP: 11/07/2024 EXAM MEASUREMENTS: Uterus: 9.7 x 6.3 x 4.6 cm Endometrial Stripe: 0.8 cm Right Ovary: 4.7 x 2.2 x 2.3 cm Left Ovary: 3.9 x 3.0 x 2.0 cm Systems Administration Analyst notes: Exam limited due to gas. 1. Uterus: Retroverted *Anechoic area seen lower/anterior uterus: 1.0 x 1.2 x 0.8 cm. *Sliver of fluid seen in cervix: 2.6 x 0.5 x 0.6 cm. *Hyperechoic foci seen within uterus, larger area measures 0.5 cm in transverse. Some nonspecific linda metrial calcifications are suggested. 2. Endometrium: 0.8 cm. 3. Right Ovary: Follicles seen 4. Left Ovary: Anechoic area seen: 2.5 x 1.6 x 1.3 cm. 5. Bilateral Adnexa: Slightly limited due to gas. 6. Posterior cul-de-sac: wnl IMPRESSION: 1. Retroverted uterus. Suspect a small scar niche measuring 1.2 cm. 2. Follicular change of the ovaries with a 2.5 cm dominant follicle/functional cyst of the left ovary . [facility], , 11/13/2024 10:40 AM
== END | disposition home or self-care (01) ==
LOC: RADUSWWP 09:30
PROVIDERS: ATTEND Family Medicine
DX: N93.9 Abnormal uterine and vaginal bleeding, unspecified (principal); O03.9 Complete or unspecified spontaneous abortion without complication; N85.4 Malposition of uterus; R25.2 Cramp and spasm; N83.02 Follicular cyst of left ovary
CPT/HCPCS: 76856

== ENCOUNTER → 2024-11-13 | Outpatient (CLI) | payer BC ==
--- NOTE | 2024-11-13 09:56 | US ---
EXAMINATION TYPE: US abdomen complete DATE OF EXAM: 11/13/2024 COMPARISON: NONE CLINICAL INDICATION: Female, 33 years old with history of R10.30 LOWER ADM; Whole abdominal cramping with indigestion and heartburn x 1 month; Hx POTS and MCAS; Hx appendectomy TECHNIQUE: Grayscale and color Doppler imaging of the abdomen was performed. FINDINGS: EXAM MEASUREMENTS: Liver Length: 17.0 cm Gallbladder Wall: 0.2 cm CBD: 0.3 cm, color Doppler imaging was utilized to isolate the common bile duct for measurement. Spleen: 11.0 cm Right Kidney: 11.7 x 4.0 x 4.4 cm Left Kidney: 11.8 x 4.6 x 5.3 cm Pancreas: wnl; pancreatic duct seen within the tail portion, normal caliber at 1.6 mm Liver: wnl Gallbladder: ? Folds seen within neck area; ? 3 mm nodular artifact vs ringdown within anterior body portion Evidence for sonographic Daigle's sign: No CBD: wnl Spleen: wnl Right Kidney: ? Normal renal tissue vs hypoechoic upper pole lesion = 2.2 x 1.9 x 2.1 cm Left Kidney: wnl Upper IVC: wnl Abd Aorta: wnl IMPRESSION: 1. Possible 2.2 cm hypoechoic cortical lesion upper pole right kidney versus artifact. Recommend thre e-month follow-up ultrasound to reassess. 2. Either some ring down artifact or a 3 mm anterior gallbladder wall polyp. This can be reassessed a t the patient's 3 month follow-up. 3. Otherwise, no gallstones or biliary ductal dilatation. [facility], , 11/13/2024 9:53 AM
== END | disposition home or self-care (01) ==
LOC: RADUSWWP 08:00
PROVIDERS: ATTEND Student in an Organized Health Care Education/Training Program
DX: R10.30 Lower abdominal pain, unspecified (principal); Z90.49 Acquired absence of other specified parts of digestive tract
CPT/HCPCS: 76700